=== PATIENT | female | born 1975 | race Caucasian/White ===

== ENCOUNTER 2024-06-09 08:37 | Observation (INO) | payer OTHER, SELFPAY ==
[2024-06-09] VITALS (7 sets, daily range): BP systolic 106–143; BP diastolic 74–101; PULSE 81–104; RESP 13–18; TEMP 35.8–36.7; O2SAT 96–100; BMI 39.0; BMI 38.1
--- NOTE | 2024-06-09 08:49 | RAD_ITS ---
EXAM: XR Chest, 2 Views CLINICAL INDICATION: TECHNIQUE: Frontal and lateral views of the chest. COMPARISON: No relevant prior studies available. FINDINGS: LUNGS AND PLEURAL SPACES: Unremarkable. No consolidation. No pneumothorax. HEART: Unremarkable. No cardiomegaly. MEDIASTINUM: Unremarkable. Normal mediastinal contour. BONES/JOINTS: Unremarkable. No acute fracture. RAD/Chest PA and Lateral IMPRESSION: No acute cardiopulmonary process. Reading Location: [facility]
--- NOTE | 2024-06-09 08:51 | EX.ED.DYSGE1 ---
HPI History of Present Illness Chief Complaint: Hyperglycemia Narrative Narrative: Patient is a 49-year-old female with no known significant past medical history who presented to the emergency department with a chief complaint of concern for elevated blood sugar. Patient states that she does not follow with a doctor on regular basis. Patient states that last Sunday she came down with flulike symptoms and has been not feeling well over the past several days. Patient noted that she felt like her glucose was high on Sunday but not check it. States that she has been not feeling well again today she checked it and noted that her sugar this morning was 280 and was concerned therefore they came here further evaluation management. Patient states that she has an upset stomach this morning but denies vomiting. PFSH PFSH Home Medications ?Medication ?Instructions ?Recorded ?Last Taken ?Type NK 06/09/24 Unknown History Allergy/AdvReac Type Severity Reaction Status Date / Time No Known Allergies Allergy Verified 06/09/24 08:38 Social History Smoking Status: Never smoker ROS ROS ED ROS Narrative Constitutional: Complains of chills denies fevers, headaches, lightness, dizziness Eyes: Denies change in vision double vision blurry vision Cardiovascular: Denies chest pain or palpitations Respiratory: Complains cough but denies sputum production denies shortness of breath Abdomen: Complains of nausea but denies any vomiting or diarrhea abdominal pain : Denies any urinary symptoms Neurological: Denies numbness, weakness, tingling Musculoskeletal: Denies back pain Skin: Denies any rashes or lesions EXAM Physical Exam Narrative Exam Narrative: General: Patient was lying in bed rest comfortably did not appear to be acute distress Head: Atraumatic, normocephalic Eyes: PERRL bilaterally, EOMI bilateral, no conjunctival injection noted Neck: Soft, supple, trach midline Cardiovascular: Regular rate and rhythm no murmurs gallops rubs noted Respiratory: Clear to auscultation bilaterally no rales rhonchi or wheezes noted Abdomen: Soft, nondistended, nontender to palpation Extremities: +5/5 strength noted in the bilateral upper and lower extremities, no pedal edema on exam, radial pulses +2/4 in the bilateral extremities Neurological: Patient following commands knew that she was at [facility] year is 2024 Skin: Warm, dry, intact no rashes or lesions noted Const Vital Signs: 06/09/24 08:39 06/09/24 10:38 06/09/24 12:00 Temperature 96.5 F L Temperature Source Temporal Pulse Rate 104 H 91 84 Respiratory Rate 16 18 17 Blood Pressure 143/101 H 117/80 133/76 H Blood Pressure Mean 115 92 95 Pulse Ox 98 98 Oxygen Delivery Method Room Air Room Air MDM MDM MDM Narrative Medical decision making narrative: Patient is a 49-year-old female who presented to the emergency department with concern for hypoglycemia. Plan of care blood glucose was obtained was noted be 291. On the differential diagnose includes but not limited to hyperglycemia, prediabetic, diabetic, UTI, pneumonia. Once workup is obtained reviewed she will be reevaluated. Patient be given IV fluids, Zofran, Bentyl. Patient CBC reviewed showed no evidence leukocytosis white blood count normal 8.3, hemoglobin was 16.2, platelet count normal at 279. Patient sodium was 130, potassium was noted to be low at 2.2, creatinine was 1.03. Patient glucose noted be 339 anion gap normal at 15. Patient AST and ALT were 22 and 17 respectively. Patient urinalysis reviewed and showed 25 leukocyte esterase negative nitrites 0-5 white blood cells with 3+ bacteria she does not have any urinary symptoms we will send this for culture. Patient's acetone level was negative. Patient chest x-ray reviewed by myself and by radiology showed no acute cardiopulmonary processes. Patient was given 40 mill equivalents of potassium supplementation orally followed by another 30 mill equivalents intravenously will add a another 20 on. Patient's case will be discussed with hospitalist for admission. Discussed case with hospitalist Dr. Gaines who accept patient for admission. Patient and significant other at bedside and agreeable with the plan. All question concerns answered Lab Data Labs: Laboratory Results - last 24 hr 06/09/24 06/09/24 06/09/24 08:45 09:07 09:20 WBC 8.3 RBC 5.24 Hgb 16.2 H Hct 42.8 MCV 81.7 MCH 30.9 MCHC 37.9 H RDW Std Deviation 36.5 RDW Coeff of Heath 12.3 Plt Count 279 MPV 9.8 Immature Gran % (Auto) 0.400 Neut % (Auto) 70.2 H Lymph % (Auto) 24.8 [place] % (Auto) 4.1 Eos % (Auto) 0.1 Baso % (Auto) 0.4 Absolute Neuts (auto) 5.9 Absolute Lymphs (auto) 2.07 Nucleated RBC % 0 Sodium 130 L Potassium 2.2 L* Chloride 96 L Carbon Dioxide 19.0 L Anion Gap 15 BUN 17 Creatinine 1.03 H Estim Creat Clear Calc 67.53 Est GFR (MDRD) Af Amer 73 Est GFR (MDRD) Non-Af 60 BUN/Creatinine Ratio 16.5 Glucose 339 H Calcium 9.6 Magnesium 2.2 Total Bilirubin 1.00 AST 22 ALT 17 Alkaline Phosphatase 109 Total Protein 8.2 Albumin 3.7 Globulin 4.5 H Albumin/Globulin Ratio 0.8 L Lipase 28 L Urine Color Yellow Urine Clarity Clear Urine pH 6.5 Ur Specific [place] 1.010 Urine Protein 30 H Urine Glucose (UA) Normal Urine Ketones 50 H Urine Occult Blood Negative Urine Nitrite Negative Urine Bilirubin Negative Urine Urobilinogen Normal Ur Leukocyte Esterase 25 H Urine RBC 0 SEEN Urine WBC 0-5 SEEN Ur Squamous Epith Cells 0-5 SEEN Ur Transition Epith Cell 0-5 SEEN Urine Bacteria 3+ Hyaline Casts 0-5 SEEN Urine Mucus 0 SEEN Acetone Level NEGATIVE POC Glucose 291 H Radiography Diagnostic Testing: Clinical Impression(s) from Imaging Studies Chest X-Ray 06/09/24 08:49 IMPRESSION: No acute cardiopulmonary process. Reading Location: [facility] Discharge Plan Triage Chief Complaint: Hyperglycemia ED Provider: James Veras Dx/Rx/DC Orders Clinical Impression: Acute hypokalemia, Influenza A Prescriptions: No Action NK Primary Care Provider: Care Physician,No Primary Referrals: NOT,DEFINED [Non-Staff] - Print Language: Malaysian Disposition Disposition: [facility]
[2024-06-09 09:03] LABS: Bedside Glucose 291 mg/dL (74-106)
[2024-06-09] MEDS: Ondansetron 4 MG/2 ML Vial IV (09:13)
[2024-06-09] MEDS: 0.9% Normal Saline (1000mL) 1,000 ML 999 ML IV (09:13)
[2024-06-09] MEDS: Dicyclomine 10 MG Capsule 20 MG PO (09:13)
[2024-06-09 09:32] LABS: Absolute Lymphocyte Count 2.07 X10^3/uL (0.83-4.51); Absolute Neutrophil Count 5.9 X10^3/uL (2.0-7.7); Basophil# 0.03 X10^3/uL; Basophil% 0.4 % (0-1); Eosinophil# 0.01 X10^3/uL; Eosinophils% 0.1 % (0-5); Hematocrit 42.8 % (37-47); Lymphocyte # 2.07 X10^3/ul (0.83-4.51); Lymphocyte % 24.8 % (19-41); Mean Corpuscular Volume 81.7 fL (81-99); Mean Platelet Vol. 9.8 fl (6.2-12.0); Monocyte# 0.34 X10^3/uL; Monocyte% 4.1 % (0-10); NRBC Flagged by Analyzer 0 % (0-5); Neutrophil # 5.85 X10^3/uL (2.7-7.7); Neutrophil % 70.2 % (47-70); POSITIVE COUNT YES; Platelet Count 279 K/mm3 (150-450); RBC Distribution Width CV 12.3 % (11.6-14.6); RBC Distribution Width SD 36.5 fl (35.1-43.9); Red Blood Count 5.24 M/mm3 (4.2-5.4); White Blood Count 8.3 K/mm3 (4.4-11.0)
[2024-06-09 09:33] LABS: Color, Urine Yellow (Yellow); Glucose, Dipstick Normal (Normal); Ketone-Dipstick 50 mg/dl (Negative); Leukocyte Esterase-Dipstick 25 /ul (Negative); Nitrite-Dipstick Negative (Negative); Occult Blood-Urine Negative /ul (Negative); Protein-Dipstick 30 mg/dl (Negative); Urine Bilirubin Dipstick Negative (Negative); Urine Clarity Clear (Clear); Urine Urobilinogen Normal (Normal); Urine pH 6.5 (5.0 - 8.0)
[2024-06-09 09:43] LABS: Bacteria 3+ /hpf (None Seen); Hyaline Cast 0-5 SEEN /lpf (0-5); Mucous, Urine 0 SEEN /hpf (<or=2+); Red Blood Cells-Urine 0 SEEN /hpf (0-5); Squamous Epithelial Cells - UA 0-5 SEEN /hpf (5-10); Transitional Epithelial - Ur 0-5 SEEN /hpf (0-5); White Blood Cells 0-5 SEEN /hpf (0-5)
[2024-06-09 09:51] LABS: ALB/GLOB Ratio 0.8 RATIO (0.9-2.4); AST(SGOT) 22 U/L (15-37); Alanine Aminotransfer ALT/SGPT 17 U/L (13-56); Albumin, Serum 3.7 g/dL (3.2-5.0); Alkaline Phosphatase 109 U/L (45-117); Anion Gap 15 (5-15); BUN 17 mg/dL (7-18); BUN/Creat Ratio 16.5 RATIO (10-20); Calcium,Total 9.6 mg/dL (8.5-10.1); Chloride 96 mmol/L (98-107); Creatinine, Serum 1.03 mg/dL (0.55-1.02); EST Glomerular Filtration Rate 60 mL/min (>60); Est Glom Filt Rate - Afr Amer 73 mL/min (>60); Estimated Creatinine Clearance 67.53 ml/min; Globulin 4.5 g/dL (2.2-4.2); Glucose 339 mg/dL (74-106); Lipase 28 U/L (73-393); Potassium 2.2 mmol/L (3.5-5.1); Protein, Total 8.2 g/dL (6.4-8.2); Sodium Level 130 mmol/L (136-145)
[2024-06-09] MEDS: Potassium Chloride Oral Soln 20 MEQ/15 ML UDC 40 MEQ PO (10:04)
[2024-06-09] MEDS: Potassium Chloride 10mEq/100mL 10 MEQ/100 ML IV.SOLN. 100 MEQ IV BOLUS ×5 (10:06→17:08)
[2024-06-09 10:32] LABS: Hemoglobin 16.2 g/dL (12.0-15.0); Mean Corpuscular Hgb 30.9 pg (27.0-32.0)
[2024-06-09 10:33] LABS: Mean Corp Hgb Conc 37.9 g/dL (32-36)
--- NOTE | 2024-06-09 10:58 | CM.ED ---
Social work Reason for referral: no PCP Referral source: case find This SW identified patient's lack of PCP and need for resources. This SW entered patient's room, introducing self and role at [facility]. Patient accepted SW visit and confirmed not having a PCP. Patient accepted resources of [facility] Provider Directory and Zenia Stark information. Patient denied further needs at this time. Demetra Castañeda, PUBLIC RELATIONS ACCOUNT EXECUTIVE, LABEL OPERATOR
[2024-06-09 11:00] LABS: Magnesium 2.2 mg/dL (1.6-2.6)
--- NOTE | 2024-06-09 14:04 | PCM.HP.STD ---
HPI - General General Date of Admission: 06/09/24 Date of Service: 06/09/24 Chief Complaint: elevated glucose, feeling gen unwell HPI Narrative JANICE MCNEIL, is a 49-year-old female presented [facility] 04/08/2025 with concerns for elevated blood sugar. She does not follow with On regular basis. Last Sunday she came down with flulike symptoms and has not been feeling well. She was not feeling well again today and checked her blood sugar and noted it was 280s and was concerned so she came to the ED for evaluation management. She does have some stomach upset but no vomiting. In the ED [id number] glucose 291, sodium 130 with a potassium of 2.2, bicarb 19, anion gap 15 and creatinine 1.03 with no baseline labs in our system. Patient given a liter of IV fluid with 40 of oral potassium and 50 of IV potassium and hospitalist contacted for admission. Patient evaluated at bedside with family member present reports she has been feeling unwell for about 6 days with the flu, has had some aching and feeling generally unwell with cough and occasionally shortness of breath with the cough. Patient denies any current fevers, denies any abdominal pain, nausea or vomiting or diarrhea but does report she has had very poor p.o. intake during this time. Denies ever being diagnosed with diabetes or other medical problems and denies any known problems her potassium [facility] Home Medications ?Medication ?Instructions ?Recorded ?Last Taken ?Type NK 06/09/24 Unknown History Allergy/AdvReac Type Severity Reaction Status Date / Time No Known Allergies Allergy Verified 06/09/24 08:38 Social History Smoking Status: Never smoker ROS ROS Narrative General: Denies fever/chills HENT: Denies headache EYES: Denies changes in vision Resp: Has had some cough and shortness of breath with the cough Cardiac: Denies chest pain GI: Denies abdominal pain, denies changes in bowel, denies nausea/vomiting, poor p.o. intake : Denies changes in urination Extremity: Denies swelling MSK: Some weakness and generally feeling unwell Neuro: Denies any numbness/tingling Heme: Denies any bleeding or bruising Skin: Denies rashes Psychiatric: No complaints voiced Vital Signs Vital Signs Vital Signs: 06/09/24 08:39 06/09/24 10:38 06/09/24 12:00 Temperature 96.5 F L Temperature Source Temporal Pulse Rate 104 H 91 84 Respiratory Rate 16 18 17 Blood Pressure 143/101 H 117/80 133/76 H Blood Pressure Mean 115 92 95 Pulse Ox 98 98 Oxygen Delivery Method Room Air Room Air Weight Weight: 93.803 kg Body Mass Index (BMI) 39.0 Physical Exam Narrative General: Alert, oriented, no apparent distress HEENT: Atraumatic, normocephalic Eyes: Anicteric, normal conjunctiva, extraocular movements grossly intact Neck: Supple Respiratory: Clear to auscultation bilaterally, normal respiratory effort Cardiovascular: Regular rate and rhythm GI: Soft, nontender, nondistended Extremities: No edema Musculoskeletal: Moving all extremities Neuro: No overt focal neurological deficits Skin: No rashes appreciated Psych: Cooperative Results Lab / Micro Data 06/09/24 09:20 06/09/24 09:20 Labs: Laboratory Results - last 24 hr 06/09/24 08:45: POC Glucose 291 H 06/09/24 09:07: Urine Color Yellow, Urine Clarity Clear, Urine pH 6.5, Ur Specific [place] 1.010, Urine Protein 30 H, Urine Glucose (UA) Normal, Urine Ketones 50 H, Urine Occult Blood Negative, Urine Nitrite Negative, Urine Bilirubin Negative, Urine Urobilinogen Normal, Ur Leukocyte Esterase 25 H, Urine RBC 0 SEEN, Urine WBC 0-5 SEEN, Ur Squamous Epith Cells 0-5 SEEN, Ur Transition Epith Cell 0-5 SEEN, Urine Bacteria 3+, Hyaline Casts 0-5 SEEN, Urine Mucus 0 SEEN 06/09/24 09:20: WBC 8.3, RBC 5.24, Hgb 16.2 H, Hct 42.8, MCV 81.7, MCH 30.9, MCHC 37.9 H, RDW Std Deviation 36.5, RDW Coeff of Heath 12.3, Plt Count 279, MPV 9.8, Immature Gran % (Auto) 0.400, Neut % (Auto) 70.2 H, Lymph % (Auto) 24.8, [place] % (Auto) 4.1, Eos % (Auto) 0.1, Baso % (Auto) 0.4, Absolute Neuts (auto) 5.9, Absolute Lymphs (auto) 2.07, Nucleated RBC % 0, Sodium 130 L, Potassium 2.2 L*, Chloride 96 L, Carbon Dioxide 19.0 L, Anion Gap 15, BUN 17, Creatinine 1.03 H, Estim Creat Clear Calc 67.53, Est GFR (MDRD) Af Amer 73, Est GFR (MDRD) Non-Af 60, BUN/Creatinine Ratio 16.5, Glucose 339 H, Calcium 9.6, Magnesium 2.2, Total Bilirubin 1.00, AST 22, ALT 17, Alkaline Phosphatase 109, Total Protein 8.2, Albumin 3.7, Globulin 4.5 H, Albumin/Globulin Ratio 0.8 L, Lipase 28 L, Acetone Level NEGATIVE Imaging Radiology Impression Chest X-Ray 06/09/24 08:49 IMPRESSION: No acute cardiopulmonary process. Reading Location: [facility] Assessment & Plan Assessment/Plan (1) Acute hypokalemia: PLAN: Plan # Hypokalemia -Potassium 2.2 in the ED with magnesium within normal limits -EKG with a QTc of 42 and 96 bpm, normal sinus rhythm -Patient repleted with 50 of IV potassium and 40 of oral -Trend BMP # Hyperglycemia -Without known diabetes -[id number] was 291 but on BMP was 339 -Check A1c -Sliding scale insulin # Concern for dehydration -Patient with elevated hemoglobin, creatinine of 1.03 and electrolyte abnormalities, given this in addition to her flulike symptoms concerned that there is a component of dehydration -IV fluids -Supportive care # Flulike symptoms -Patient endorses 6 days of the flu, supportive care -Will add droplet precautions #DVT ppx: Lovenox subcu Maura Gaines MD Charges/Coding Visit Charges Inpatient E&M: 64077 Init Hosp L2
[2024-06-09] MEDS: 0.9% Normal Saline (1000mL) 1,000 ML 50 ML IV (16:06)
[2024-06-09] MEDS: Insulin Lispro 100 UNIT/ML INSULN.PEN SC ×2 (17:27→21:49)
[2024-06-09 17:34] LABS: Bedside Glucose 270 mg/dL (74-106)
[2024-06-09 18:25] LABS: Anion Gap 9 (5-15); BUN 14 mg/dL (7-18); BUN/Creat Ratio 17.1 RATIO (10-20); Calcium,Total 8.6 mg/dL (8.5-10.1); Chloride 105 mmol/L (98-107); Creatinine, Serum 0.82 mg/dL (0.55-1.02); EST Glomerular Filtration Rate 78 mL/min (>60); Est Glom Filt Rate - Afr Amer 95 mL/min (>60); Estimated Creatinine Clearance 83.65 ml/min; Glucose 248 mg/dL (74-106); Potassium 3.1 mmol/L (3.5-5.1); Sodium Level 136 mmol/L (136-145)
[2024-06-09] MEDS: Potassium Chloride Oral Tablet 20 MEQ 60 MEQ PO (21:49)
[2024-06-09 22:14] LABS: Bedside Glucose 254 mg/dL (74-106)
[2024-06-09 22:30] LABS: Anion Gap 7 (5-15); BUN 14 mg/dL (7-18); BUN/Creat Ratio 15.2 RATIO (10-20); Calcium,Total 8.5 mg/dL (8.5-10.1); Chloride 104 mmol/L (98-107); Creatinine, Serum 0.92 mg/dL (0.55-1.02); EST Glomerular Filtration Rate 68 mL/min (>60); Est Glom Filt Rate - Afr Amer 82 mL/min (>60); Estimated Creatinine Clearance 74.55 ml/min; Glucose 245 mg/dL (74-106); Potassium 3.2 mmol/L (3.5-5.1); Sodium Level 135 mmol/L (136-145)
[2024-06-10 03:42] VITALS: BP 134/70; PULSE 79; RESP 16; TEMP 36.6; O2SAT 95
[2024-06-10] MEDS: Insulin Lispro 100 UNIT/ML INSULN.PEN SC ×2 (06:24→12:02)
[2024-06-10 06:48] LABS: Bedside Glucose 190 mg/dL (74-106)
[2024-06-10 07:19] LABS: Absolute Lymphocyte Count 2.28 X10^3/uL (0.83-4.51); Absolute Neutrophil Count 3.5 X10^3/uL (2.0-7.7); Basophil# 0.02 X10^3/uL; Basophil% 0.3 % (0-1); Eosinophil# 0.05 X10^3/uL; Eosinophils% 0.8 % (0-5); Hematocrit 38.8 % (37-47); Hemoglobin 13.8 g/dL (12.0-15.0); Lymphocyte # 2.28 X10^3/ul (0.83-4.51); Lymphocyte % 37.1 % (19-41); Mean Corp Hgb Conc 35.6 g/dL (32-36); Mean Corpuscular Hgb 30.1 pg (27.0-32.0); Mean Corpuscular Volume 84.5 fL (81-99); Mean Platelet Vol. 9.7 fl (6.2-12.0); Monocyte# 0.32 X10^3/uL; Monocyte% 5.2 % (0-10); NRBC Flagged by Analyzer 0 % (0-5); Neutrophil # 3.45 X10^3/uL (2.7-7.7); Neutrophil % 56.3 % (47-70); Platelet Count 249 K/mm3 (150-450); RBC Distribution Width CV 12.7 % (11.6-14.6); RBC Distribution Width SD 38.6 fl (35.1-43.9); Red Blood Count 4.59 M/mm3 (4.2-5.4); White Blood Count 6.1 K/mm3 (4.4-11.0)
--- NOTE | 2024-06-10 07:44 | PN.HOSP_ITS ---
Reason for Visit Reason for Visit: Diagnoses Hypokalemia (06/09/24) Objective Data Objective Data Vital Signs: Vital Signs Temp Pulse Resp BP Pulse Ox O2 Del Method 97.9 F 79 16 134/70 H 95 Room Air 06/10/24 03:42 06/10/24 03:42 06/10/24 03:42 06/10/24 03:42 06/10/24 03:42 06/10/24 03:42 Oxygen Delivery Method Room Air Weight: 201 lb 11.567 oz Body Mass Index (BMI) 38.1 Intake & Output: Intake and Output for Last 24 Hours 06/08/24 06/09/24 06/10/24 23:59 23:59 23:59 Intake Total 1495.00 / 1495.00 Balance 1495.00 / 1495.00 Lab / Micro Data 06/10/24 06:39 06/09/24 22:09 Labs: Laboratory Results - last 24 hr 06/09/24 08:45: POC Glucose 291 H 06/09/24 09:07: Urine Color Yellow, Urine Clarity Clear, Urine pH 6.5, Ur Specific [place] 1.010, Urine Protein 30 H, Urine Glucose (UA) Normal, Urine Ketones 50 H, Urine Occult Blood Negative, Urine Nitrite Negative, Urine Bilirubin Negative, Urine Urobilinogen Normal, Ur Leukocyte Esterase 25 H, Urine RBC 0 SEEN, Urine WBC 0-5 SEEN, Ur Squamous Epith Cells 0-5 SEEN, Ur Transition Epith Cell 0-5 SEEN, Urine Bacteria 3+, Hyaline Casts 0-5 SEEN, Urine Mucus 0 SEEN 06/09/24 09:20: WBC 8.3, RBC 5.24, Hgb 16.2 H, Hct 42.8, MCV 81.7, MCH 30.9, M CHC 37.9 H, RDW Std Deviation 36.5, RDW Coeff of Heath 12.3, Plt Count 279, MPV 9.8, Immature Gran % (Auto) 0.400, Neut % (Auto) 70.2 H, Lymph % (Auto) 24.8, [place] % (Auto) 4.1, Eos % (Auto) 0.1, Baso % (Auto) 0.4, Absolute Neuts (auto) 5.9, Absolute Lymphs (auto) 2.07, Nucleated RBC % 0, Sodium 130 L, Potassium 2.2 L*, Chloride 96 L, Carbon Dioxide 19.0 L, Anion Gap 15, BUN 17, Creatinine 1.03 H, Estim Creat Clear Calc 67.53, Est GFR (MDRD) Af Amer 73, Est GFR (MDRD) Non-Af 60, BUN/Creatinine Ratio 16.5, Glucose 339 H, Calcium 9.6, Magnesium 2.2, Total Bilirubin 1.00, AST 22, ALT 17, Alkaline Phosphatase 109, Total Protein 8.2, Albumin 3.7, Globulin 4.5 H, A lbumin/Globulin Ratio 0.8 L, Lipase 28 L, Acetone Level NEGATIVE 06/09/24 17:06: POC Glucose 270 H 06/09/24 17:43: Sodium 136, Potassium 3.1 L, Chloride 105, Carbon Dioxide 22.0, Anion Gap 9, BUN 14, Creatinine 0.82, Estim Creat Clear Calc 83.65, Est GFR (MDRD) Af Amer 95, Est GFR (MDRD) Non-Af 78, BUN/Creatinine Ratio 17.1, Glucose 248 H, Calcium 8.6 06/09/24 21:47: POC Glucose 254 H 06/09/24 22:09: Sodium 135 L, Potassium 3.2 L, Chloride 104, Carbon Dioxide 24.0, Anion Gap 7, BUN 14, Creatinine 0.92, Estim Creat Clear Calc 74.55, Est GFR (MDRD) Af Amer 82, Est GFR (MDRD) Non-Af 68, BUN/Creatinine Ratio 15.2, G lucose 245 H, Calcium 8.5 06/10/24 06:22: POC Glucose 190 H 06/10/24 06:39: WBC 6.1, RBC 4.59, Hgb 13.8, Hct 38.8, MCV 84.5, MCH 30.1, MCHC 35.6 D, RDW Std Deviation 38.6, RDW Coeff of Heath 12.7, Plt Count 249, MPV 9.7, Immature Gran % (Auto) 0.300, Neut % (Auto) 56.3, Lymph % (Auto) 37.1, [place] % (Auto) 5.2, Eos % (Auto) 0.8, Baso % (Auto) 0.3, Absolute Neuts (auto) 3.5, Absolute Lymphs (auto) 2.28, Nucleated RBC % 0 Radiography Diagnostic Testing: Radiology Impression Chest X-Ray 06/09/24 08:49 IMPRESSION: No acute cardiopulmonary process. Reading Location: [facility] Assessment & Plan Assessment/Plan (1) Acute hypokalemia: PLAN: Plan 49-year-old female was admitted with high blood sugar at home. Patient does not have a PCP to follow-up with # Hypokalemia -Potassium 2.2 in the ED with magnesium within normal limits -EKG with a QTc of 42 and 96 bpm, normal sinus rhythm -Patient repleted with 50 of IV potassium and 40 of oral -Trend BMP # Hyperglycemia -Without known diabetes -[id number] was 291 but on BMP was 339 -Check A1c -Sliding scale insulin # Concern for dehydration -Patient with elevated hemoglobin, creatinine of 1.03 and electrolyte abnormalities, given this in addition to her flulike symptoms concerned that there is a component of dehydration -IV fluids -Supportive care # Flulike symptoms -Patient endorses 6 days of the flu, supportive care -Will add droplet precautions #DVT ppx: Lovenox subcu
[2024-06-10 08:26] LABS: Anion Gap 7 (5-15); BUN 11 mg/dL (7-18); BUN/Creat Ratio 16.6 RATIO (10-20); Calcium,Total 8.5 mg/dL (8.5-10.1); Chloride 109 mmol/L (98-107); Creatinine, Serum 0.66 mg/dL (0.55-1.02); EST Glomerular Filtration Rate 100 mL/min (>60); Est Glom Filt Rate - Afr Amer 121 mL/min (>60); Estimated Creatinine Clearance 103.92 ml/min; Glucose 176 mg/dL (74-106); Potassium 3.1 mmol/L (3.5-5.1); Sodium Level 138 mmol/L (136-145); Thyroid Stim Hormone (TSH) 0.737 uIU/mL (0.358-3.740)
[2024-06-10 09:40] VITALS: BP 119/69; PULSE 94; RESP 18; TEMP 36.6; O2SAT 98
--- NOTE | 2024-06-10 09:40 | DCINST_ITS ---
Discharge Instructions Diet Discharge Diet: Low fat / Low cholesterol, 1800 Calorie Control Diet and 2000 mg Sodium Diet DC O2, CPAP, BIPAP needs Home O2 Discharge instructions: No Dressing / Incision Discharge Activity: Return to Normal Activity Weight Bearing Status: Weight bearing as tolerated Dressing / Incision Call your doctor if you observe: Fever of 101 or Higher, Coldness, Increased Pain, Numbness or Tingling, Change in Color, Inability to urinate, Inability to have a bowel movement, Shortness of breath, Dizziness, Fainting spells, Swelling in the ankles, Chest pain, Prolonged hiccupping, Increased palpitations (irregular heartbeat) and Calf discomfort Follow Up Care When: IN 2 WEEKS Test Results: Test results from this visit will be discussed in further detail at your follow- up appointment, if applicable. Discharge Plan Admission Admit Date/Time: 06/09/24 14:04 Attending Provider: Attila Matute Primary Care Provider: Care Physician,No Primary Consulting Providers: Maura Gaines Discharge Orders/Prescriptions Prescriptions: New potassium chloride 20 mEq Tablet,Er Particles/Crystals 40 meq PO BIDCM 3 Days Qty: 12 0RF glipizide 5 mg tablet 5 mg PO BID 30 Days Qty: 60 2RF Rx Instructions: Hold if glucose less than 130 mg/dl metformin 500 mg tablet 500 mg PO BID 30 Days Qty: 60 1RF Rx Instructions: Start from 06/12/2024 Referrals / Follow Up: Care Physician,No Primary [Primary Care Provider] - NOT,DEFINED [Non-Staff] - Disposition Disposition (needs filled in before D/C Order can be placed): Home, Self Care
[2024-06-10 09:43] LABS: Hemoglobin A1c 7.6 % (3.8-5.6)
[2024-06-10 09:53] VITALS: RESP 18
[2024-06-10] MEDS: Potassium Chloride Oral Tablet 20 MEQ 40 MEQ PO (10:22)
--- NOTE | 2024-06-10 12:00 | DS.PCM_ITS ---
Providers Date of Admission: 06/09/24 Date of Discharge: 06/10/24 Primary Care Physician: No Primary Care Phys Reason For Visit: HYPOKALEMIA Diagnosis Discharge Diagnosis (1) Acute hypokalemia: Status: Acute Code(s): E87.6 - Hypokalemia Plan 49-year-old female was admitted with high blood sugar at home. Patient does not have a PCP to follow-up with # Hypokalemia -Potassium 2.2 in the ED with magnesium within normal limits -EKG with a QTc of 482 and 96 bpm, normal sinus rhythm -Potassium was replaced. Prescription for potassium given. Serum magnesium normal. # new onset diabetes mellitus: Patient knew that she has hyperglycemia for the last 4 to 5 years but really she was avoiding it. Most likely type 2 diabetes mellitus. She does not have primary care. Advised to establish with. A1c 7.6%. Glucose is controlled, 176 in BMP. Prescription given for metformin and glipizide. Advised [place] 3 times daily AC metformin. # Acute dehydration: Hydration was completed. -Patient with elevated hemoglobin, creatinine of 1.03 and electrolyte abnormalities, given this in addition to her flulike symptoms concerned that there is a component of dehydration -IV fluids -Supportive care # Flulike symptoms -Patient endorses 6 days of the flu, supportive care. She is recovering. Advised to maintain droplet precautions for 2 more days #DVT ppx: Lovenox subcu Discharge medication reconciliation done. Discharge follow-up instructions completed. Discharge process discussed with the patient and all questions were answered to patient's satisfaction. Follow with PCP in 1 to 2 weeks Total time spent, exact 35 minutes on discharge meds reconciliation, examination, coordination of care with nurses and ancillary staff, review of imaging and blood test and discussion with the patient on follow-up instructions. Medications at Discharge Home Medications glipizide 5 mg tablet 5 mg PO BID 1 month #60 tabs 06/10/24 metformin 500 mg tablet 500 mg PO BID 1 month #60 tabs 06/10/24 potassium chloride 20 mEq tablet,extended release(part/cryst) 40 meq (2 x 20 mEq) PO BIDCM 3 days #12 tabs 06/10/24 Physical Exam Narrative Seen and examined. Patient has mild cough from flu about 6 days to 1 week ago. She is recovering well. No fever. Glucoses controlled. Physical exam General: Alert, Oriented x3, Cooperative HEENT: Atraumatic, PERRLA, EOMI, Normocephalic Oral: Oral mucosa moist. No Gingival or Mucosal Lesions/ Ulcerations Neck: Supple, No JVD, Negative Carotid Bruits Chest wall/Lungs: Air entry diminished in bilateral lung bases. No crepitation/rhonchi Cardiovascular: Regular rate, Regular Rhythm, Normal S1, Normal S2, No M/G/R Abdomen: Bowel Sounds Present, Soft, Non Tender, Non-Distended : No dysuria. No renal angle tenderness. No suprapubic tenderness. Extremities: No edema, Capillary Refill Less than 3 Seconds Skin: No rashes, No breakdown Musculoskeletal: No Tenderness to Palpation of Joints or Extremities Neurological: Cranial nerves II-XII grossly intact, DTR 2+/4. No acute focal neurological deficit. Psych/Mental Status: Normal Affect, Appropriate. Weight / BMI Weight Weight: 201 lb 11.567 oz Body Mass Index (BMI) 38.1 ABG / Lab / Microbiology Data 06/10/24 06:39 06/10/24 06:39 Laboratory: Laboratory Results - last 24 hr 06/09/24 17:06: POC Glucose 270 H 06/09/24 17:43: Sodium 136, Potassium 3.1 L, Chloride 105, Carbon Dioxide 22.0, Anion Gap 9, BUN 14, Creatinine 0.82, Estim Creat Clear Calc 83.65, Est GFR (MDRD) Af Amer 95, Est GFR (MDRD) Non-Af 78, BUN/Creatinine Ratio 17.1, Glucose 248 H, Calcium 8.6 06/09/24 21:47: POC Glucose 254 H 06/09/24 22:09: Sodium 135 L, Potassium 3.2 L, Chloride 104, Carbon Dioxide 24.0, Anion Gap 7, BUN 14, Creatinine 0.92, Estim Creat Clear Calc 74.55, Est GFR (MDRD) Af Amer 82, Est GFR (MDRD) Non-Af 68, BUN/Creatinine Ratio 15.2, G lucose 245 H, Calcium 8.5 06/10/24 06:22: POC Glucose 190 H 06/10/24 06:39: WBC 6.1, RBC 4.59, Hgb 13.8, Hct 38.8, MCV 84.5, MCH 30.1, MCHC 35.6 D, RDW Std Deviation 38.6, RDW Coeff of Heath 12.7, Plt Count 249, MPV 9.7, Immature Gran % (Auto) 0.300, Neut % (Auto) 56.3, Lymph % (Auto) 37.1, [place] % (Auto) 5.2, Eos % (Auto) 0.8, Baso % (Auto) 0.3, Absolute Neuts (auto) 3.5, Absolute Lymphs (auto) 2.28, Nucleated RBC % 0, Sodium 138, Potassium 3.1 L, C hloride 109 H, Carbon Dioxide 22.0, Anion Gap 7, BUN 11, Creatinine 0.66, Estim Creat Clear Calc 103.92, Est GFR (MDRD) Af Amer 121, Est GFR (MDRD) Non-Af 100, BUN/Creatinine Ratio 16.6, Glucose 176 H, Hemoglobin A1c 7.6 H, Calcium 8.5, TSH 0.737 Microbiology: Microbiology 06/09/24 10:20 Urine, Random Urine Culture - Preliminary Mixed Gram Positive Organisms D/C Instructions Discharge Diet: Low fat / Low cholesterol, 1800 Calorie Control Diet and 2000 mg Sodium Diet Weight Bearing Status: Weight bearing as tolerated Call your doctor if you observe: Fever of 101 or Higher, Coldness, Increased Pain, Numbness or Tingling, Change in Color, Inability to urinate, Inability to have a bowel movement, Shortness of breath, Dizziness, Fainting spells, Swelling in the ankles, Chest pain, Prolonged hiccupping, Increased palpitations (irregular heartbeat) and Calf discomfort DC O2, CPAP, BIPAP Needs Home O2 Discharge instructions: No When: IN 2 WEEKS Meaningful Use Info Meaningful Use Meaningful Use Diagnoses (Choose all that apply): None applicable Ischemic Stroke Statin Dosing Therapy Reference: STATIN DOSE THERAPY REFERENCE: * Patients > 75 years receive moderate or high dose statin therapy. * Patients 75 years or YOUNGER should receive HIGH intensity statin dose unless contraindicated. You will be required to document reason for non-treatment if statin daily dose does not meet guidelines. HIGH DOSE STATIN THERAPY DAILY Atorvastatin > than or = to 40 mg Rosuvastatin > than or = to 20 mg Amlodipine + Atorvastatin > than or = to 2.5/40 mg Ezetimibe + Simvastatin 10/80 mg Simvastatin 80mg Discharge Plan Admission Admit Date/Time: 06/09/24 14:04 Attending Provider: Attila Matute Primary Care Provider: Care Physician,No Primary Consulting Providers: Maura Gaines Discharge Orders/Prescriptions Prescriptions: New potassium chloride 20 mEq Tablet,Er Particles/Crystals 40 meq PO BIDCM 3 Days Qty: 12 0RF glipizide 5 mg tablet 5 mg PO BID 30 Days Qty: 60 2RF Rx Instructions: Hold if glucose less than 130 mg/dl metformin 500 mg tablet 500 mg PO BID 30 Days Qty: 60 1RF Rx Instructions: Start from 06/12/2024 Referrals / Follow Up: Care Physician,No Primary [Primary Care Provider] - NOT,DEFINED [Non-Staff] - Disposition Disposition (needs filled in before D/C Order can be placed): Home, Self Care Charges/Coding Visit Charges Inpatient E&M: 66937 Disch Hosp >30min
[2024-06-10 12:25] LABS: Bedside Glucose 271 mg/dL (74-106)
--- NOTE | 2024-06-10 12:53 | CASEMGMT ---
Patient has order for discharge. Patient will need glucometer at discharge, script received. RN CM in to discuss needs at discharge. RN CM provided patient with script for glucometer and also updated regarding OTC glucometer at [facility]. Pateint provided with PCP list and [employer] [employer] informations. Patient denies needs or help at discharge. Patient had no further questions or concerns.
[2024-06-10 13:37] VITALS: BP 110/70; PULSE 87; RESP 18; TEMP 36.4; O2SAT 94
--- NOTE | 2024-06-10 14:34 | CHAPLAIN ---
Type of Pastoral Visit _x__ Initial Visit ___ Follow-up Visit ___ On-call Visit ___ General Patient Visit ___ Spiritual Assessment ___ Family Conference ___ Bereavement ___ Rapid Response ___ Code Blue ___ Other (describe below) Pastoral Care Referral From _x__ Patient ___ Family ___ Nurse ___ Physician ___ Employment Program Representative ___ Wharf Tender ___ Other (describe below) Sacrament/Intervention _x__ Active listening ___ Anointing ___ Roman Catholic ___ Bereavement ___ Communion ___ Cesilia exploration ___ ___ Life review ___ Prayer ___ Reconciliation ___ Sacrament of Sick ___ Supportive presence ___ Wedding ___ Other (describe below) Pastoral Comments patient says that she is feeling fine and is waiting for a ride to go home; spouse is in the room and reports that they are fine and have no new needs;goal is to have patient have better health all the time
== END 2024-06-10 09:40 | disposition home or self-care (01) ==
LOC: ED 09:04 → PCU 13:59
PROVIDERS: Admitting Provider Internal Medicine; Emergency Provider Emergency Medicine; Visit Provider Internal Medicine
DX: J10.1 Influenza due to other identified influenza virus with other respiratory manifestations (principal); E87.6 Hypokalemia; R73.9 Hyperglycemia, unspecified; E86.0 Dehydration
CPT/HCPCS: 36415; 71046; 80048; 80053; 81001; 82009; 82962; 83036; 83690; 83735; 84443; 85025; 87086; 87088; 93005; 94668; 96365; 96366; 96375; 99221; 99283; A4216; G0378; J2405

== ENCOUNTER 2024-07-11 16:25 | Emergency (ER) | payer OTHER, SELFPAY ==
[2024-07-11 16:25] VITALS: BP 119/83; PULSE 98; RESP 14; TEMP 35.6; O2SAT 98; BMI 36.6
[2024-07-11 17:13] VITALS: BP 103/82; BP 113/74; BP 113/86; PULSE 101; PULSE 91; PULSE 92
[2024-07-11 17:16] LABS: White Blood Cells 0 SEEN /hpf (0-5)
[2024-07-11 17:27] LABS: Absolute Lymphocyte Count 3.08 X10^3/uL (0.83-4.51); Absolute Neutrophil Count 8.9 X10^3/uL (2.0-7.7); Basophil# 0.03 X10^3/uL; Basophil% 0.2 % (0-1); Eosinophil# 0.08 X10^3/uL; Eosinophils% 0.6 % (0-5); Hematocrit 45.3 % (37-47); Hemoglobin 16.8 g/dL (12.0-15.0); Lymphocyte # 3.08 X10^3/ul (0.83-4.51); Lymphocyte % 23.5 % (19-41); Mean Corp Hgb Conc 37.1 g/dL (32-36); Mean Corpuscular Hgb 30.7 pg (27.0-32.0); Mean Corpuscular Volume 82.8 fL (81-99); Mean Platelet Vol. 9.7 fl (6.2-12.0); Monocyte# 0.99 X10^3/uL; Monocyte% 7.5 % (0-10); NRBC Flagged by Analyzer 0 % (0-5); Neutrophil # 8.91 X10^3/uL (2.7-7.7); Neutrophil % 67.9 % (47-70); Platelet Count 366 K/mm3 (150-450); RBC Distribution Width CV 12.6 % (11.6-14.6); Red Blood Count 5.47 M/mm3 (4.2-5.4); White Blood Count 13.1 K/mm3 (4.4-11.0)
[2024-07-11 17:31] LABS: Color, Urine Yellow (Yellow); Glucose, Dipstick Normal (Normal); Ketone-Dipstick 5 mg/dl (Negative); Leukocyte Esterase-Dipstick Negative /ul (Negative); Nitrite-Dipstick Negative (Negative); Occult Blood-Urine Negative /ul (Negative); Protein-Dipstick 30 mg/dl (Negative); Specific Gravity, Urine 1.015 (1.002-1.030); Urine Bilirubin Dipstick Negative (Negative); Urine Clarity Clear (Clear); Urine Urobilinogen Normal (Normal)
[2024-07-11 17:39] LABS: Bedside Glucose 162 mg/dL (74-106)
[2024-07-11 17:56] LABS: Bacteria 1+ /hpf (None Seen); Mucous, Urine 1+ /hpf (<or=2+); Red Blood Cells-Urine 0 SEEN /hpf (0-5); Squamous Epithelial Cells - UA 0-5 SEEN /hpf (5-10)
[2024-07-11 17:56] LABS: ALB/GLOB Ratio 1.4 RATIO (0.9-2.4); AST(SGOT) 20 U/L (<=31); Alanine Aminotransfer ALT/SGPT 11 U/L (<=34); Albumin, Serum 4.8 g/dL (3.5-5.0); Alkaline Phosphatase 85 U/L (35-104); Anion Gap 18 (5-15); BUN 21 mg/dL (4-19); BUN/Creat Ratio 20.7 RATIO (10-20); Carbon Dioxide 20.7 mmol/L (21.0-32.0); Chloride 91 mmol/L (98-108); EST Glomerular Filtration Rate 68 (>60); Estimated Creatinine Clearance 67.08 ml/min (50-250); Globulin 3.4 g/dL (2.2-4.2); Glucose 140 mg/dL (70-99); Potassium 2.8 mmol/L (3.3-5.1); Protein, Total 8.1 g/dL (5.9-8.4); Sodium Level 130 mmol/L (133-145); Total Bilirubin 0.51 mg/dL (0.00-1.30)
[2024-07-11 18:25] VITALS: BP 111/74; PULSE 89; RESP 16; O2SAT 99
[2024-07-11] MEDS: Potassium Chloride Oral Soln 20 MEQ/15 ML UDC 40 MEQ PO ×2 (19:19→20:03)
--- NOTE | 2024-07-11 19:54 | EDS_ITS ---
HPI History of Present Illness Chief Complaint: Weakness Detail of Chief Complaint: I do not feel right since Sunday Informant: patient and spouse/S.O. Onset/Context/Timing Onset: Days Context: Sudden Onset Timing: Continuous Quality: Feels different, does not feel right Location: No specific location, generalized Current Severity: Unable to quantitate Maximum Severity: Unable to quantitate Worsened by: Nothing Relieved by: Nothing Associated Symptoms Associated Symptoms: Legs are wobbly when she walks Narrative Narrative: Patient is a 49-year-old woman. She has history of type 2 diabetes. She was prescribed potassium in the past for hypokalemia. She denies fever, chills night sweats. Denies headache, visual, ocular auditory symptoms. She denies problems with speech or swallowing. She denies rhinorrhea, congestion, postnasal drainage sore throat. She denies chest pain. Denies cough or shortness of breath. She denies difficulty breathing. She denies abdominal pain, nausea, vomiting has chronic diarrhea. Patient denies dysuria, frequency, urgency or hematuria. Patient denies skin lesions. Patient denies paresthesia, anesthesia or motor weakness. Patient denies orthostatic symptoms. Patient denies vertiginous symptoms. Patient's sugars have been running between 1 20-1 50 which is about her baseline. I was walking out the room informing that last time she felt this way her potassium was low. Prior similar symptoms: Yes Recent Illness/Hospitalization: No [facility] Medical History Diabetes Home Medications ?Medication ?Instructions ?Recorded ?Last Taken ?Type glipizide 5 mg tablet 5 mg PO BID 1 month #60 tabs 06/10/24 Unknown Rx metformin 500 mg tablet 500 mg PO BID 1 month #60 ta bs 06/10/24 Unknown Rx potassium chloride 20 mEq 40 meq (2 x 20 mEq) PO BIDCM 3 06/10/24 Unknown Rx tablet,extended release(part/cryst) days #12 tabs potassium chloride 20 mEq oral 20 meq PO BID #50 ea Unknown Rx packet Allergy/AdvReac Type Severity Reaction Status Date / Time No Known Allergies Allergy Verified 07/11/24 16:26 Social History (Updated 07/11/24 @ 19:[address] Tony Patel MD) household members: spouse Smoking Status: Never smoker ROS ROS ED Constitutional Constitutional ED: Denies chills, fever(s), subjective, sweats or weight loss Eyes Eyes: Denies blurry vision or change in vision ENT ENT ED: Denies ear pain, rhinorrhea or sore throat Cardiovascular Cardiovascular: Denies chest pain, orthopnea, palpitations, paroxysmal nocturnal dyspnea or racing heartbeat Respiratory/Chest Respiratory/Chest: Denies cough, dyspnea on exertion, orthopnea or paroxysmal nocturnal dyspnea Gastrointestinal Gastrointestinal: Reports diarrhea and other Details: Diarrhea is chronic. She has never had a colonoscopy. She did have stool tests. She does not know the results. ; Denies abdominal pain, constipation, melena, nausea or vomiting Genitourinary Genitourinary ED: Denies dysuria, hematuria or urinary frequency Musculoskeletal Musculoskeletal: Denies arthralgias, back pain or myalgias Integumentary Denies abscess, Abrasions or rash Neurologic Neurologic: Reports weakness; Denies headache(s) or paresthesias Psychiatric Psychiatric: Denies anxiety or depression Hematologic/Lymphatic Hematologic/Lymphatic: Reports systems reviewed and no addt'l complaints, except as documented EXAM Physical Exam Const Vital Signs: 07/11/24 16:25 07/11/24 16:46 07/11/24 17:13 Temperature 96.1 F L Temperature Source Temporal Pulse Rate 98 Pulse Rate [Lying] 91 Pulse Rate [Sitting (for 1 minute prior to obtaining)] 92 Pulse Rate [Standing (for 1 minute prior to obtaining)] 101 H Respiratory Rate 14 Respiratory Effort Normal Respiratory Pattern Normal Blood Pressure 119/83 H Blood Pressure [Lying] 113/74 Blood Pressure [Sitting (for 1 minute prior to obtaining)] 113/86 H Blood Pressure [Standing (for 1 minute prior to obtaining)] 103/82 H Blood Pressure Mean 95 Blood Pressure Mean [Lying] 87 Blood Pressure Mean [Sitting (for 1 minute prior to obtaining)] 95 Blood Pressure Mean [Standing (for 1 minute prior to obtaining)] 89 Pulse Ox 98 Oxygen Delivery Method Room Air 07/11/24 18:25 07/11/24 20:00 Temperature Temperature Source Pulse Rate 89 89 Pulse Rate [Lying] Pulse Rate [Sitting (for 1 minute prior to obtaining)] Pulse Rate [Standing (for 1 minute prior to obtaining)] Respiratory Rate 16 16 Respiratory Effort Respiratory Pattern Blood Pressure 111/74 112/82 H Blood Pressure [Lying] Blood Pressure [Sitting (for 1 minute prior to obtaining)] Blood Pressure [Standing (for 1 minute prior to obtaining)] Blood Pressure Mean 86 92 Blood Pressure Mean [Lying] Blood Pressure Mean [Sitting (for 1 minute prior to obtaining)] Blood Pressure Mean [Standing (for 1 minute prior to obtaining)] Pulse Ox 99 97 Oxygen Delivery Method Room Air Room Air Vital signs noted. Orthostatic vital signs negative. Positive well nourished and well developed Constitutional Narrative: BMI is 36.6. General Appearance ED: well developed and NAD; Negative for pallor HEENT Reports moist mucous membranes HEENT Narrative: Head is atraumatic normocephalic. Ears are normal. Nares are patent. Posterior pharynx is normal. Uvula is midline. No deviation tongue protrusion. Eyes PERRL and EOMs intact bilaterally General Eye ED: Negative for pale conjunctiva or scleral icterus Neck no lymphadenopathy, supple and no JVD Chest Wall inspection of chest normal and palpation of chest normal Resp normal respiratory effort and clear to auscultation bilaterally Cardio regular rate, regular rhythm, S1 normal heart sound, S2 normal heart sound and no murmurs GI normal to inspection, nondistended, normoactive bowel sounds, non-tender, non- distended and no masses; Negative for hepatosplenomegaly Back/Spine no CVA tenderness Extremity normal to inspection General Extremety ED: Negative for edema or tenderness General Extremity: Negative for edema Neuro oriented x3, CN's II-XII intact bilaterally and no sensory deficits noted Sensorium / Orientation: alert Motor Exam: strength 5/5 throughout Psych mental status grossly normal Skin no rashes or lesions noted, no wounds and skin turgor normal General Skin Exam: elasticity normal; Negative for jaundice or pallor MDM MDM MDM Narrative Medical decision making narrative: The patient complained of wobbly legs orthostatics were performed and normal. CBC to assess H&H since she appears pale but her conjunctive is pink. UA to assess specific gravity and evidence of infection. Since he is diabetic Roc panel was obtained assess glucose CO2 anion gap. With her having chronic diarrhea also to assess for hypokalemia and in light of the fact that she has had hypokalemia in the past. Lab Data Attestation: I reviewed the patient's lab results. Lab results narrative: White count is slightly elevated with normal basic metabolic panel is remarkable for a sodium of 130, potassium of 2.8 and chloride of 91. CO2 is slightly decreased at 20.7 with an anion gap of 18. As needed GFR is 68. Urinalysis reveals bacteria without pyuria. Labs: Laboratory Results - last 24 hr 07/11/24 07/11/24 07/11/24 16:54 17:05 17:20 WBC 13.1 H RBC 5.47 H Hgb 16.8 H Hct 45.3 MCV 82.8 MCH 30.7 MCHC 37.1 H RDW Std Deviation 38.0 RDW Coeff of Heath 12.6 Plt Count 366 MPV 9.7 Immature Gran % (Auto) 0.300 Neut % (Auto) 67.9 Lymph % (Auto) 23.5 [place] % (Auto) 7.5 Eos % (Auto) 0.6 Baso % (Auto) 0.2 Absolute Neuts (auto) 8.9 H Absolute Lymphs (auto) 3.08 Nucleated RBC % 0 Sodium 130 L Potassium 2.8 L Chloride 91 L Carbon Dioxide 20.7 L Anion Gap 18 H BUN 21 H Creatinine 1.00 Estim Creat Clear Calc 67.08 Est GFR (MDRD) Non-Af 68 BUN/Creatinine Ratio 20.7 H Glucose 140 H Calcium 10.0 Total Bilirubin 0.51 AST 20 ALT 11 Alkaline Phosphatase 85 Total Protein 8.1 Albumin 4.8 Globulin 3.4 Albumin/Globulin Ratio 1.4 Urine Color Yellow Urine Clarity Clear Urine pH 6.0 Ur Specific [place] 1.015 Urine Protein 30 H Urine Glucose (UA) Normal Urine Ketones 5 H Urine Occult Blood Negative Urine Nitrite Negative Urine Bilirubin Negative Urine Urobilinogen Normal Ur Leukocyte Esterase Negative Urine RBC 0 SEEN Urine WBC 0 SEEN Ur Squamous Epith Cells 0-5 SEEN Urine Bacteria 1+ Urine Mucus 1+ POC Glucose 162 H Treatment and Re-Evaluation :: Since patient is hypokalemic 40 mEq of potassium was ordered and repeat dose in 1 hour. Suspect this is due to her chronic diarrhea. Will suggest to follow-up with Dr. Delaney for outpatient workup of her diarrhea. Comments:: Patient was informed she needs follow-up with chair lift operator for colonoscopy or sigmoidoscopy. She states she is having this worked up. She was offered an acute appointment with Dr. Delaney. She declined. She states she would talk to her doctor to determine what best. Patient understands that her low potassium is due to her diarrhea. Will place on potassium supplement. Discharge Plan Triage Chief Complaint: Weakness ED Provider: Tony Patel Dx/Rx/DC Orders Clinical Impression: Acute hypokalemia, Chronic diarrhea, Hypothermia, Type 2 diabetes mellitus, BMI 36.0-36.9,adult Instructions: ED Hypokalemia Prescriptions: New potassium chloride 20 mEq packet 20 meq PO BID Qty: 50 0RF No Action potassium chloride 20 mEq Tablet,Er Particles/Crystals 40 meq PO BIDCM 3 Days Qty: 12 0RF glipizide 5 mg tablet 5 mg PO BID 30 Days Qty: 60 2RF Rx Instructions: Hold if glucose less than 130 mg/dl metformin 500 mg tablet 500 mg PO BID 30 Days Qty: 60 1RF Rx Instructions: Start from 06/12/2024 Primary Care Provider: Care Physician,No Primary Referrals: Care Physician,No Primary [Primary Care Provider] - Activity Restrictions/Additional Instructions: With your history of chronic diarrhea this is probably the cause of your low potassium. You will need to have your potassium level checked in a week by your doctor. Strongly recommend/encourage you follow-up with GI for endoscopy whether it be a colonoscopy or sigmoidoscopy. Print Language: Luxembourgish Disposition Disposition: Home, Self Care
[2024-07-11 20:00] VITALS: BP 112/82; PULSE 89; RESP 16; O2SAT 97
[2024-07-11 21:10] VITALS: BP 109/81; PULSE 63; RESP 16; TEMP 36.6; O2SAT 96
== END 2024-07-11 21:12 | disposition home or self-care (01) ==
PROVIDERS: Emergency Provider Emergency Medicine; Visit Provider Emergency Medicine
DX: R53.1 Weakness (principal); E11.9 Type 2 diabetes mellitus without complications; K52.9 Noninfective gastroenteritis and colitis, unspecified; E87.6 Hypokalemia; T68.XXXA Hypothermia, initial encounter; Z79.84 Long term (current) use of oral hypoglycemic drugs
CPT/HCPCS: 80053; 81001; 82962; 85025; 99284

== ENCOUNTER 2025-04-19 09:47 | Emergency (ER) | payer OTHER, SELFPAY ==
[2025-04-19 09:48] VITALS: BP 121/83; PULSE 91; RESP 18; TEMP 36.8; O2SAT 99; BMI 36.4
--- NOTE | 2025-04-19 10:10 | EKG12_ITS ---
Test Reason : Blood Pressure : */* mmHG Vent. Rate : 80 BPM Atrial Rate : 80 BPM P-R Int : 160 ms QRS Dur : 76 ms QT Int : 400 ms P-R-T Axes : 51 -1 30 degrees QTcB Int : 461 ms Normal sinus rhythm Normal ECG Confirmed by Tres Cao ([id number]), development editor DJ TALBOT ([id number]) on 04/21/2025 10:03:26 AM Referred By: Confirmed By: Tres Cao
--- NOTE | 2025-04-19 10:12 | EX.ED.DYSGE1 ---
HPI History of Present Illness Chief Complaint: Weakness Informant: patient and spouse/S.O. Narrative Narrative: 49-year-old female presenting to the emergency room with the chief complaint of generalized weakness. Patient states she has a history of hyperglycemia that is managed with herbal remedies. She notes a longstanding history of chronic diarrhea but has not noticed a change in that. She states that she has intermittently developed episodes of hypokalemia that have felt where she is generally weak in the legs. She states she began to feel this way a few days ago. No vomiting. She is notes that she has not had much of an appetite for unknown reason. She denies any palpitations. She states she occasionally gets cramps in the legs. She denies any paresthesias. She is not on any diuretics. She is not currently taking any potassium supplementation. [facility] Medical History Diabetes Home Medications ?Medication ?Instructions ?Recorded ?Last Taken ?Type glipizide 5 mg tablet 5 mg PO BID 1 month #60 tabs 06/10/24 Unknown Rx metformin 500 mg tablet 500 mg PO BID 1 month #60 tabs 06/10/24 Unknown Rx potassium chloride 20 mEq 40 meq (2 x 20 mEq) PO BIDCM 3 06/10/24 Unknown Rx tablet,extended release(part/cryst) days #12 tabs potassium chloride 20 mEq oral 20 meq PO BID #50 ea 07/11/24 Unknown Rx packet potassium chloride 20 mEq See Rx Instructions .Route 04/19/25 Unknown Rx tablet,extended release (K-Tab) .COMPLEX #17 tabs Allergy/AdvReac Type Severity Reaction Status Date / Time No Known Allergies Allergy Verified 04/19/25 09:50 Social History household members: spouse Smoking Status: Never smoker ROS ROS ED Constitutional Constitutional ED: Denies chills or weight loss Eyes Eyes: Denies change in vision or diplopia ENT ENT ED: Denies ear pain, rhinorrhea or sore throat Cardiovascular Cardiovascular: Denies chest pain, orthopnea, palpitations or racing heartbeat Respiratory/Chest Respiratory/Chest: Denies cough, dyspnea or orthopnea Gastrointestinal Gastrointestinal: Denies abdominal pain, diarrhea, nausea or vomiting Genitourinary Genitourinary ED: Denies dysuria, hematuria or urinary frequency Musculoskeletal Musculoskeletal: Denies arthralgias or myalgias Integumentary Denies abscess or rash Neurologic Neurologic: Reports other Details: Generalized weakness ; Denies headache(s) or paresthesias Psychiatric Psychiatric: Denies anxiety, depression, suicidal ideation or suicidal thoughts Endocrine Endocrinology: Denies polydipsia, polyphagia or polyuria Allergic/Immunologic Allergic/Immunologic ED: Denies mouth swelling, tongue swelling or urticaria EXAM Physical Exam Const Vital Signs: 04/19/25 09:48 04/19/25 10:04 Temperature 98.2 F Temperature Source Oral Pulse Rate 91 Respiratory Rate 18 Respiratory Pattern Normal Blood Pressure 121/83 H Blood Pressure Mean 95 Pulse Ox 99 Oxygen Delivery Method Room Air Positive well nourished and well developed General Appearance ED: well developed HEENT Reports normocephalic, head/scalp atraumatic and moist mucous membranes Eyes PERRL and EOMs intact bilaterally Neck no lymphadenopathy, supple and no JVD Resp normal respiratory effort and clear to auscultation bilaterally Cardio regular rate, regular rhythm and no murmurs GI normal to inspection, nondistended, normoactive bowel sounds and non-tender Palpation: soft Back/Spine no CVA tenderness and normal ROM Extremity normal to inspection General Extremety ED: Negative for edema General Extremity: Negative for edema Neuro oriented x3 and CN's II-XII intact bilaterally Sensorium / Orientation: alert Motor Exam: strength 5/5 throughout Psych mental status grossly normal Mood & Affect: Negative for depressed or tearful Skin no rashes or lesions noted and no wounds MDM MDM MDM Narrative Medical decision making narrative: Differential diagnosis includes but not limited to electrolyte disorders (hypokalemia hyponatremia hypomagnesemia) cardiac dysrhythmia dehydration acute kidney injury hyperglycemia Magnesium returns at 2.1 potassium of 2.7 sodium of 131. Patient's EKG shows possible 8. patient received oral potassium supplementation as well as IV. She will be discharged home on oral potassium supplementations with instructions to have recheck of her potassium level and to discuss ongoing potassium supplementation given her chronic diarrhea. History & Record Review Discussion w/independent historian: Patient and Significant other Additional record(s) reviewed:: Prior ED visit and Prior labs Lab Data Attestation: I reviewed the patient's lab results. Labs: Laboratory Results - last 24 hr 04/19/25 10:33 WBC 9.3 RBC 5.01 Hgb 15.2 H Hct 40.6 MCV 83.4 MCH 31.2 MCHC 37.4 H RDW Std Deviation 37.5 RDW Coeff of Heath 12.8 Plt Count 316 MPV 9.4 Immature Gran % (Auto) 0.400 Neut % (Auto) 71.9 H Lymph % (Auto) 22.0 Mcdowell % (Auto) 4.8 Eos % (Auto) 0.4 Baso % (Auto) 0.5 Absolute Neuts (auto) 6.7 Absolute Lymphs (auto) 2.04 Nucleated RBC % 0 Sodium 131 L Potassium 2.7 L* Chloride 93 L Carbon Dioxide 22.9 Anion Gap 15 BUN 16 Creatinine 0.75 Estim Creat Clear Calc 89.25 Est GFR (MDRD) Non-Af 96 BUN/Creatinine Ratio 20.8 H Glucose 248 H Calcium 9.3 Magnesium 2.1 EKG Initial EKG: Attestation: I personally reviewed and interpreted this EKG as follows: Comments: Normal sinus rhythm ventricular rate of 80 bpm. No significant QRS widening or QT prolongation noted. Possible small U wave noted in I and precordial leads Discharge Plan Triage Chief Complaint: Weakness ED Provider: Jeff Lafleur Dx/Rx/DC Orders Clinical Impression: Acute hypokalemia, Weakness, Abnormal U wave present on electrocardiography Instructions: ED Hypokalemia Prescriptions: New potassium chloride [K-Tab] 20 mEq tablet extended release See Rx Instructions .ROUTE .COMPLEX Qty: 17 0RF Rx Instructions: 20 mEq p.o. twice daily x 5 days then 20 mEq p.o. daily x 1 week No Action potassium chloride 20 mEq Tablet,Er Particles/Crystals 40 meq PO BIDCM 3 Days Qty: 12 0RF glipizide 5 mg tablet 5 mg PO BID 30 Days Qty: 60 2RF Rx Instructions: Hold if glucose less than 130 mg/dl metformin 500 mg tablet 500 mg PO BID 30 Days Qty: 60 1RF Rx Instructions: Start from 06/12/2024 potassium chloride 20 mEq packet 20 meq PO BID Qty: 50 0RF Primary Care Provider: Care Physician,No Primary Referrals: Julianne Burrell MD [Med Staff - Deputy Prosecuting Attorney, Family Practice] NOT,DEFINED [Non-Staff, None] Activity Restrictions/Additional Instructions: I would recommend having your potassium level rechecked in 5 days. Please discuss potassium supplementation with your doctor. Print Language: Taiwanese Disposition Disposition: Home, Self Care
[2025-04-19 10:40] LABS: Immature Granulocytes Count 0.040 X10^3/uL (0.0-0.0); Mean Platelet Vol. 9.4 fl (6.2-12.0); NRBC Flagged by Analyzer 0 % (0-5); POSITIVE COUNT YES; Platelet Count 316 K/mm3 (150-450); RBC Distribution Width CV 12.8 % (11.6-14.6); RBC Distribution Width SD 37.5 fl (35.1-43.9); Red Blood Count 5.01 M/mm3 (4.2-5.4); White Blood Count 9.3 K/mm3 (4.4-11.0)
--- OUTSIDE RECORDS SUMMARY | 2025-04-19 10:52 | XMS RPT_ITS | CCD ---
Author Organization [facility] Care Team Providers Care Field Rep Name Role Phone Unavailable Primary Care Provider Unavailabl e Maura Gaines Consulting Unavailable Attila Matute Attending Unavailable Care Physician, No Primary Primary Care Unava ilMaura Alexander Admitting Unavailable Tony aPtel Attending Unavailable Care Physician, No Primary Primary Care Unava ilable Maura Gaines Consulting Unavailable Attila Matute Attending Unavailable Care Physician, No Primary Primary Care Unava ilable Maura Gaines Admitting Unavailable Attila Matute Consulting Unavailable Maura Gaines Attending Unavailable Dr. James Veras DO Emergency Provider Care Physician, No Primary Primary Care Provider Unavailable Eder ANN, Dr. Lorenzo Admit Provider Eder ANN, Dr. Lorenzo Other Provider Giovani ANN, Dr. Aiken Attending Provider Giovani ANN, Dr. Aiken Other Provider Jorge ANN, Dr. Jimenez Emergency Provider Medications Current Medications Medication Drug Class(es) Dates Sig (Normalized) Sig (Original) glipiZIDE 5 mg oral tablet (1 source) Sulfonylurea Start: 06-10-2024 take 1 tablet by mouth twice daily Glipizide 5 mg tablet Active 5 mg PO TWICE A DAY 60 June 10, 2024 1:00am Hold if glucose less than 130 mg/dl metFORMIN hydrochloride 500 mg oral tablet (1 source) Biguanide Start: 06-10-2024 take 1 tablet by mouth twice daily Metformin 500 mg tablet Active 500 mg PO TWICE A DAY 60 June 10, 2024 1:00am Start from 06/12/2024 potassium chloride 20 meq powder for oral solution (2 sources) Start: 07-11-2024 take 20 mEq by mouth twice daily Potassium Chloride 20 mEq packet Active 20 meq PO TWICE A DAY 50 July 11, 2024 12:00am Start: 06-10-2024 take 2 tablets by mo ut twice daily at mealtime Potassium Chloride 20 mEq Tablet,Er Particles/Crystals Active 40 meq PO TWICE DAILY WITH MEALS 12 June 10, 2024 1:00am Problems Active Problems Problem Classification Problem Date Documented Date Episodic/Chronic Diabetes mellitus without complication (1 source) Type 2 diabetes mellitus; Translations: [Type 2 diabetes mellitus without complications] 07-11-2024 Chronic Diabetes mellitus without complication (1 source) Hyperglycemia, unspecified; Translations: [Hyperglycemia, unspecified] Onset: 06-25-2024 Episodic Fluid and electrolyte disorders (4 sources) Hypokalemia; Translations: [Acute hypokalemia] Onset: 06-10-2024 06-09-2024 Episodic Influenza (2 sources) Influenza due to Influenza A virus; Translations: [Influenza due to other identified influenza virus with other respiratory manifestations] 06-18-2024 Episodic Malaise and fatigue (1 source) Weakness; Translations: [Weakness] Onset: 07-18-2024 Episodic Noninfectious gastroenteritis (1 source) Chronic diarrhea; Translations: [Noninfective gastroenteritis and colitis, unspecified] 07-11-2024 Episodic Other injuries and conditions due to external causes (1 source) Hypothermia; Translations: [Hypothermia, initial encounter] 07-11-2024 Episodic Other nutritional; endocrine; and metabolic disorders (1 source) Body mass index 30+ - obesity; Translations: [Body mass index (BMI) 36.0-36.9, adult] 07-11-2024 Chronic Other screening for suspected conditions (not mental disorders or infectious disease) (1 source) Patient encounter status; Translations: [Encounter for screening for malignant neoplasm of colon] 07-17-2024 Episodic Past or Other Problems Problem Classification Problem Date Documented Da te Episodic/Chronic Unclassified (1 source) Patient encounter status 07-17-2024 Results Test Name Value Interpretation Reference Range Facility Absolute neutrophil countOrd ered By: Tony Patel on 07-11-2024 Neutrophils (Bld) [#/Vol] 8.9 10*3/uL High 2.0-7.7 [facility] Anion gap in Serum or Plasma Ordered By: Tony Patel on 07-11-2024 Anion gap [Moles/Vol] 18 mmol/L High 5-15 [facility] BUN/creatinine ratioOrdered By: Tony Patel on 07-11-2024 Urea nitrogen/Creatinine [Mass ratio] 20.7 mg/mg High 10-20 [facility] Basophil percentageOrdered B y: Tony Patel on 07-11-2024 Basophils/100 WBC (Bld) 0.2 % 0-1 [facility] Bedside Glucoseon 07-11-2024 FINGERSTICK GLU 162 mg/dL High 74-106 [facility] Comment on above: Result Comment: KIRA HAM OF PATIENT CARE PER NURSING PROTOCOL Performed By: #### L 501.080 #### [facility] [address] [place], [address] Bilirubin Test strip Ql (U)O rdered By: Tony Patel on 07-11-2024 Bilirubin Ql (U) Negative Negative [facility] Bilirubin, totalOrdered By: Tony Patel on 07-11-2024 Bilirubin [Mass/Vol] 0.51 mg/dL 0.00-1.30 [facility] CBC W/Diff, Automatedon 06-22 Absolute Lymph 3.08 X10 3/uL Normal 0.83-4.51 [facility] Comment on above: Performed By: #### L 500.4050, L100.0100 #### [facility] [address] [place], [address] Absolute Neut 8.9 X10 3/uL High 2.0-7.7 [facility] Comment on above: Performed By: #### L [id number], L100.0100 #### [facility] [address] [place], [address] Basophils/100 WBC (Bld) 0.2 % Normal 0-1 [facility] Comment on above: Performed By: #### L 500.4050, L100.0100 #### [facility] [address] [place], [address] Eosinophils/100 WBC (Bld) 0.6 % Normal 0-5 [facility] Comment on above: Performed By: #### L [id number], L100.0100 #### [facility] [address] [place], [address] Erythrocyte distribution width (RBC) [Ratio] 12.6 % Normal 11.6-14.6 [facility] Comment on above: Performed By: #### L [id number], L100.0100 #### [facility] [address] [place], [address] Hematocrit (Bld) [Volume fraction] 45.3 % Normal 37-47 [facility] Comment on above: Performed By: #### L 500.4050, L100.0100 #### [facility] [address] [place], [address] Hemoglobin (Bld) [Mass/Vol] 16.8 g/dL High 12.0-15.0 [facility] Comment on above: Performed By: #### L 500.4050, L100.0100 #### [facility] [address] [place], [address] IG% 0.300 Normal 0.0-0.9 [facility] Comment on above: Result Comment: IG% - Immature Granulocytes (promyelocytes, myelocytes and metamyelocytes) > 1% indicates that a LEFT SHIFT is Present. Performed By: #### L 500.4050, L100.0100 #### [facility] [address] [place], [address] Lymphocytes/100 WBC (Bld) 23.5 % Normal 19-41 [facility] Comment on above: Performed By: #### L 500.4050, L100.0100 #### [facility] [address] [place], [address] MCH (RBC) [Entitic mass] 30.7 pg Normal 27.0-32.0 [facility] Comment on above: Performed By: #### L [id number], L100.0100 #### [facility] [address] [place], [address] MCHC (RBC) [Mass/Vol] 37.1 g/dL High 32-36 [facility] Comment on above: Performed By: #### L 500.4050, L100.0100 #### [facility] [address] [place], [address] MCV (RBC) [Entitic vol] 82.8 fL Normal 81-99 [facility] Comment on above: Performed By: #### L 500.4050, L100.0100 #### [facility] [address] [place], [address] Monocytes/100 WBC (Bld) 7.5 % Normal 0-10 [facility] Comment on above: Performed By: #### L 500.4050, L100.0100 #### [facility] [address] [place], [address] Neutrophils/100 WBC (Bld) 67.9 % Normal 47-70 [facility] Comment on above: Performed By: #### L 500.4050, L100.0100 #### [facility] [address] [place], [address] Nucleated RBC (Bld) [#/Vol] 0 10*3/uL Normal 0-5 [facility] Comment on above: Performed By: #### L 500.4050, L100.0100 #### [facility] [address] [place], [address] Platelet mean volume (Bld) [Entitic vol] 9.7 fL Normal 6.2-12.0 [facility] Comment on above: Performed By: #### L 500.4050, L100.0100 #### [facility] [address] [place], [address] Platelets (Bld) [#/Vol] 366 10*3/uL Normal 150-450 [facility] Comment on above: Performed By: #### L 500.4050, L100.0100 #### [facility] [address] [place], [address] RBC (Bld) [#/Vol] 5.47 10*6/uL High 4.2-5.4 [facility] Comment on above: Performed By: #### L [id number], L100.0100 #### [facility] [address] [place], [address] RDW SD 38.0 fl Normal 35.1-43.9 [facility] Comment on above: Performed By: #### L [id number], L100.0100 #### [facility] [address] [place], [address] WBC (Bld) [#/Vol] 13.1 10*3/uL High 4.4-11.0 [facility] Comment on above: Performed By: #### L 500.4050, L100.0100 #### [facility] [address] [place], [address] Carbon dioxide, total [Moles /volume] in Central venous bloodOrdered By: Tony Patel on 07-11-2024 CO2 [Moles/Vol] 20.7 mmol/L Low 21.0-32.0 [facility] Chloride assayOrdered By: Roderick Patel on 07-11-2024 Chloride [Moles/Vol] 91 mmol/L Low 98-108 [facility] Comprehensive Metabolic Prof ilon 07-11-2024 Albumin [Mass/Vol] 4.8 g/dL Normal 3.5-5.0 [facility] Comment on above: Performed By: #### L 500.4050, L100.0100 #### [facility] [address] [place], [address] Albumin/Globulin [Mass ratio] 1.4 {ratio} Normal 0.9-2.4 [facility] Comment on above: Performed By: #### L 500.4050, L100.0100 #### [facility] [address] [place], [address] ALK PHOS 85 U/L Normal 35-104 [facility] Comment on above: Performed By: #### L 500.4050, L100.0100 #### [facility] [address] [place], [address] ALT [Catalytic activity/Vol] 11 U/L Normal <=34 [facility] Comment on above: Performed By: #### L 500.4050, L100.0100 #### [facility] [address] [place], [address] AST [Catalytic activity/Vol] 20 U/L Normal <=31 [facility] Comment on above: Performed By: #### L 500.4050, L100.0100 #### [facility] [address] [place], [address] Bilirubin [Mass/Vol] 0.51 mg/dL Normal 0.00-1.30 [facility] Comment on above: Performed By: #### L 500.4050, L100.0100 #### [facility] [address] [place], [address] BUN/CRE 20.7 RATIO High 10-20 [facility] Comment on above: Performed By: #### L 500.4050, L100.0100 #### [facility] [address] [place], [address] Calcium [Mass/Vol] 10.0 mg/dL Normal 7.6-11.0 [facility] Comment on above: Performed By: #### L 500.4050, L100.0100 #### [facility] [address] [place], [address] Chloride [Moles/Vol] 91 mmol/L Low 98-108 [facility] Comment on above: Performed By: #### L 500.4050, L100.0100 #### [facility] [address] [place], [address] CO2 [Moles/Vol] 20.7 mmol/L Low 21.0-32.0 [facility] Comment on above: Performed By: #### L 500.4050, L100.0100 #### [facility] [address] [place], [address] Creatinine [Mass/Vol] 1.00 mg/dL Normal 0.70-1.20 [facility] Comment on above: Performed By: #### L 500.4050, L100.0100 #### [facility] [address] [place], [address] ECRCL 67.08 ml/min Normal 50-250 [facility] Comment on above: Performed By: #### L 500.4050, L100.0100 #### [facility] [address] [place], [address] GAP 18 High 5-15 [facility] Comment on above: Performed By: #### L 500.4050, L100.0100 #### [facility] [address] [place], [address] GFR/1.73 sq M.predicted among non-blacks MDRD (S/P/Bld) [Vol rate/Area] 68 mL/min/{1.73_m2} Normal >60 [facility] Comment on above: Result Comment: mL/m in/1.73m2 CKD-EPI Creatinine Equation (2020) Performed By: #### L 500.4050, L100.0100 #### [facility] [address] [place], [address] Globulin (S) [Mass/Vol] 3.4 g/dL Normal 2.2-4.2 [facility] Comment on above: Performed By: #### L 500.4050, L100.0100 #### [facility] [address] [place], [address] Glucose [Mass/Vol] 140 mg/dL High 70-99 [facility] Comment on above: Performed By: #### L 500.4050, L100.0100 #### [facility] [address] [place], [address] Potassium [Moles/Vol] 2.8 mmol/L Low 3.3-5.1 [facility] Comment on above: Performed By: #### L 500.4050, L100.0100 #### [facility] [address] [place], [address] Sodium [Moles/Vol] 130 mmol/L Low 133-145 [facility] Comment on above: Performed By: #### L 500.4050, L100.0100 #### [facility] [address] [place], [address] T PROT 8.1 g/dL Normal 5.9-8.4 [facility] Comment on above: Performed By: #### L 500.4050, L100.0100 #### [facility] [address] [place], [address] Urea nitrogen [Mass/Vol] 21 mg/dL High 4-19 [facility] Comment on above: Performed By: #### L 500.4050, L100.0100 #### [facility] [address] [place], [address] Emergency Department Summary on 07-11-2024 Emergency Department Summary [facility] Medical Records Department [address] [place] [address] Emergency Department Summary 07/11/24 MR#: [id number] Acct: [id number] Name: STEFFI SAEED Rep #: [id number] : 1975 49 From: Tony Patel MD PCP: Care Physician,No Primary Status:REG ER Location: ED HPI History of Present Illness Chief Complaint: Weakness Detail of Chief Complaint: I do not feel right since Sunday Informant: patient and spouse/S.O. Onset/Context/Timin g Onset: Days Context: Sudden Onset Timing: Continuous Quality: Feels different, does not feel right Location: No specific location, generalized Current Severity: Unable to quantitate Maximum Severity: Unable to quantitate Worsened by: Nothing Relieved by: Nothing Associated Symptoms Associated Symptoms: Legs are wobbly when she walks Narrative Narrative: Patient is a 49-year-old woman. She has history of type 2 diabetes. She was prescribed potassium in the past for hypokalemia. She denies fever, chills night sweats. Denies headache, visual, ocular auditory symptoms. She denies problems with speech or swallowing. She denies rhinorrhea, congestion, postnasal drainage sore throat. She denies chest pain. Denies cough or shortness of breath. She denies difficulty breathing. She denies abdominal pain, nausea, vomiting has chronic diarrhea. Patient denies dysuria, frequency, urgency or hematuria. Patient denies skin lesions. Patient denies paresthesia, anesthesia or motor weakness. Patient denies orthostatic symptoms. Patient denies vertiginous symptoms. Patient's sugars have been running between 1 20-1 50 which is about her baseline. I was walking out the room informing that last time she felt this way her potassium was low. Prior similar symptoms: Yes Recent Illness/Hospitaliza tion: No PFSH PFSH Medical History Diabetes Home Medications ???Medication ???Instructions ???Recorded ???Last Taken ???Type glipizide 5 mg tablet 5 mg PO BID 1 month #60 tabs 06/10 Unknown Rx metformin 500 mg tablet 500 mg PO BID 1 month #60 tabs Unknown Rx potassium chloride 20 mEq 40 meq (2 x 20 mEq) PO BIDCM 3 Unknown Rx tablet,extended release(part/cryst) days #12 tabs potassium chloride 20 mEq oral 20 meq PO BID #50 ea 07/11/24 Unkn own Rx packet Allergy/AdvReac Type Severity Reaction Status Date / Time No Known Allergies Allergy Verified 07/11/24 16:26 Social History (Updated 07/11/24 @ 19:[address] Tony Patel MD) household members: spouse Smoking Status: Never smoker ROS ROS ED Constitutional Constitutional ED: Denies chills, fever(s), subjective, sweats or weight loss Eyes Eyes: Denies blurry vision or change in vision ENT ENT ED: Denies ear pain, rhinorrhea or sore throat Cardiovascular Cardiovascular: Denies chest pain, orthopnea, palpitations, paroxysmal nocturnal dyspnea or racing heartbeat Respiratory/Chest Respiratory/Chest: Denies cough, dyspnea on exertion, orthopnea or paroxysmal nocturnal dyspnea Gastrointestinal Gastrointestinal: Reports diarrhea and other Details: Diarrhea is chronic. She has never had a colonoscopy. She did have stool tests. She does not know the results. ; Denies abdominal pain, constipation, melena, nausea or vomiting Genitourinary Genitourinary ED: Denies dysuria, hematuria or urinary frequency Musculoskeletal Musculoskeletal: Denies arthralgias, back pain or myalgias Integumentary Denies abscess, Abrasions or rash Neurologic Neurologic: Reports weakness; Denies headache(s) or paresthesias Psychiatric Psychiatric: Denies anxiety or depression Hematologic/Lymphat ic Hematologic/Lymphat ic: Reports systems reviewed and no addt'l complaints, except as documented EXAM Physical Exam Const Vital Signs: 07/11/24 16:25 07/11/24 16:46 07/11/24 17:13 Temperature 96.1 F L Temperature Source Temporal Pulse Rate 98 Pulse Rate [Lying] 91 Pulse Rate [Sitting (for 1 minute prior to obtaining)] 92 Pulse Rate [Standing (for 1 minute prior to obtaining)] 101 H Respiratory Rate 14 Respiratory Effort Normal Respiratory Pattern Normal Blood Pressure 119/83 H Blood Pressure [Lying] 113/74 Blood Pressure [Sitting (for 1 minute prior to obtaining)] 113/86 H Blood Pressure [Standing (for 1 minute prior to obtaining)] 103/82 H Blood Pressure Mean 95 Blood Pressure Mean [Lying] 87 Blood Pressure Mean [Sitting (for 1 minute prior to obtaining)] 95 Blood Pressure Mean [Standing (for 1 minute prior to obtaining)] 89 Pulse Ox 98 Oxygen Delivery Method Room Air 07/11/24 18:25 07/11/24 20:00 Temperature Temperature Source Pulse Rate 89 89 Pulse Rate [Lying] Pulse Rate [Sitting (for 1 neel (more content not included)... Normal [facility] Eosinophil percentageOrdered By: Tony Patel on 07-11-2024 Eosinophils/100 WBC (Bld) 0.6 % 0-5 [facility] Epithelial cells.squamous LM Ql (Urine sed)Ordered By: Tony Patel on 07-11-2024 Epithelial cells.squamous LM.HPF (Urine sed) [#/Area] 0 /[HPF] 5-10 [facility] Erythrocyte distribution wid th ratioOrdered By: Tony Patel on 07-11-2024 Erythrocyte distribution width (RBC) [Ratio] 12.6 % 11.6-14.6 [facility] Erythrocyte distribution wid th standard deviationOrdered By: Tony Patel on 07-11-2024 Erythrocyte distribution width (RBC) [Entitic vol] 38.0 fL 35.1-43.9 [facility] Estimation of creatinine timothy aranceOrdered By: Tony Patel on 07-11-2024 Estimated Creatinine Clearance Calc 67.08 ml/min 50-250 [facility] GFR/1.73 sq M.predicted pedro g non-blacks MDRD (S/P/Bld) [Vol rate/Area]Ordered By: Tony Patel on 07-11-2024 Estimated GFR (MDRD) Non-Af Amer 68 >60 [facility] Comment on above: mL/min/1.73m2 CKD-EP I Creatinine Equation (2020) Glucose Ql (U)Ordered By: Roderick Patel on 07-11-2024 Urine Glucose (UA) Normal mg/dl Normal [facility] Glucose measurement at bedsi deOrdered By: Tony Patel on 07-11-2024 Bedside Glucose (Misc Panel) 162 mg/dL High 74-106 [facility] Comment on above: MANAGEMENT OF PATIEN T CARE PER NURSING PROTOCOL Hematocrit Auto (Bld) [Volum e fraction]Ordered By: Tony Patel on 07-11-2024 Hematocrit (Bld) [Volume fraction] 45.3 % 37-47 [facility] Hemoglobin measurementOrdere d By: Tony Patel on 07-11-2024 Hemoglobin (Bld) [Mass/Vol] 16.8 g/dL High 12.0-15.0 [facility] Immature granulocytes/100 WB C Auto (Bld)Ordered By: Tony Patel on 07-11-2024 Immature granulocytes/100 WBC (Bld) 0.300 % 0.0-0.9 [facility] Comment on above: IG% - Immature Granu locytes (promyelocytes, myelocytes and metamyelocytes) > 1% indicates that a LEFT SHIFT is Present. Ketones Test strip Ql (U)Ord ered By: Tony Patel on 07-11-2024 Ketones Ql (U) 5 mg/dl High Negative [facility] - Chemistry and C hemistry - challengeOrdered By: Tonyyadiel Patel on 07-11-2024 AST [Catalytic activity/Vol] 20 U/L <32 [facility] Lymphocytes Auto (Unsp spec) [#/Vol]Ordered By: Tony Patel on 07-11-2024 Lymphocytes (Bld) [#/Vol] 3.08 10*3/uL 0.83-4.51 [facility] Lymphocytes/100 WBC Auto (Un sp spec)Ordered By: Tony Patel on 07-11-2024 Lymphocytes/100 WBC (Bld) 23.5 % 19-41 [facility] MCV (mean corpuscular volume ) determinationOrdered By: Tony Patel on 07-11-2024 MCV (RBC) [Entitic vol] 82.8 fL 81-99 [facility] Mean corpuscular hemoglobin (MCH) determinationOrdered By: Tony Patel on 07-11-2024 MCH (RBC) [Entitic mass] 30.7 pg 27.0-32.0 [facility] Mean corpuscular hemoglobin concentration (MCHC) determinationOrdered By: Tonyyadiel Patel on 07-11-2024 MCHC (RBC) [Mass/Vol] 37.1 g/dL High 32-36 [facility] Mean platelet volume determi nationOrdered By: Tony Patel on 07-11-2024 Platelet mean volume (Bld) [Entitic vol] 9.7 fL 6.2-12.0 [facility] Microscopic analysis of urin e for red blood cells (RBC)Ordered By: Tony Patle on 07-11-2024 Urine RBC 0 SEEN /hpf 0-5 [facility] Monocyte percentageOrdered B y: Tony Patel on 07-11-2024 Monocytes/100 WBC (Bld) 7.5 % 0-10 [facility] Mucus LM Ql (Urine sed)Order ed By: Tony Patel on 07-11-2024 Mucus Ql (Urine sed) 1+ /hpf [facility] Neutrophil percentageOrdered By: Tony Patel on 07-11-2024 Neutrophils/100 WBC (Bld) 67.9 % 47-70 [facility] Nitrite Test strip Ql (U)Ord ered By: Tony Patel on 07-11-2024 Nitrite Ql (U) Negative Negative [facility] Nucleated red blood cell per centageOrdered By: Tony Patel on 07-11-2024 Nucleated RBC/100 WBC (Bld) [Ratio] 0 % 0-5 [facility] Platelet countOrdered By: Roderick Patel on 07-11-2024 Platelets (Bld) [#/Vol] 366 10*3/uL 150-450 [facility] Potassium (Unsp spec) [Mass/ Vol]Ordered By: Tony Patel on 07-11-2024 Potassium [Moles/Vol] 2.8 mmol/L Low 3.3-5.1 [facility] Protein Test strip Ql (U)Ord ered By: Tony Patel on 07-11-2024 Protein Ql (U) 30 mg/dl High Negative [facility] RBC Auto (Bld) [#/Vol]Ordere d By: Tony Patel on 07-11-2024 RBC (Bld) [#/Vol] 5.47 10*6/uL High 4.2-5.4 [facility] Serum creatinine measurement (mass/volume)Ordered By: Tony Patel on 07-11-2024 Creatinine [Mass/Vol] 1.00 mg/dL 0.70-1.20 [facility] Serum globulin measurementOr dered By: Tony Patel on 07-11-2024 Globulin (S) [Mass/Vol] 3.4 g/dL 2.2-4.2 [facility] Serum glucose measurement (m ass/volume)Ordered By: Tonyyadiel Patel on 07-11-2024 Glucose [Mass/Vol] 140 mg/dL High 70-99 [facility] Serum or plasma alanine douglas otransferase (ALT) measurementOrdered By: Tony Patel on 07-11-2024 ALT [Catalytic activity/Vol] 11 U/L <35 [facility] Serum or plasma albumin mazin urement (mass/volume)Ordered By: Tony Patel on 07-11-2024 Albumin [Mass/Vol] 4.8 g/dL 3.5-5.0 [facility] Serum or plasma albumin/glob ulin mass ratioOrdered By: [facility] on 07-11-2024 Albumin/Globulin [Mass ratio] 1.4 {ratio} 0.9-2.4 [facility] Serum or plasma alkaline sona sphatase measurementOrdered By: Tony Patel on 07-11-2024 ALP [Catalytic activity/Vol] 85 U/L 35-104 [facility] Serum or plasma calcium mazin urement (mass/volume)Ordered By: Tony Patel on 07-11-2024 Calcium [Mass/Vol] 10.0 mg/dL 7.6-11.0 [facility] Serum or plasma urea nitroge n measurement (mass/volume)Ordered By: Tonyyadiel Patel on 07-11-2024 Urea nitrogen [Mass/Vol] 21 mg/dL High 4-19 [facility] Sodium levelOrdered By: Tony Patel on 07-11-2024 Sodium [Moles/Vol] 130 mmol/L Low 133-145 [facility] Total proteinOrdered By: [facility] on 07-11-2024 Protein [Mass/Vol] 8.1 g/dL 5.9-8.4 [facility] Urinalysis, Completeon 07-11 BACTERIA 1+ /hpf Normal None Seen [facility] Comment on above: Order Comment: CLEAN CATCH Performed By: #### L 500.2500, L501.9584, L100.0100, L501.5933 #### [facility] [address] [place], [address] EPI,SQUAMOUS 0-5 SEEN Normal 5-10 [facility] Comment on above: Order Comment: CLEAN CATCH Performed By: #### L 500.2500, L501.9520, L100.0100, L501.9985 #### [facility] [address] [place], [address] Mucus Ql (Urine sed) 1+ /hpf Normal [facility] Comment on above: Order Comment: CLEAN CATCH Performed By: #### L 500.2500, L501.9520, L100.0100, L501.9985 #### [facility] [address] [place], [address] RBC 0 SEEN Normal 0-5 [facility] Comment on above: Order Comment: CLEAN CATCH Performed By: #### L 500.2500, L501.9520, L100.0100, L501.9985 #### [facility] [address] [place], [address] WBC 0 SEEN Normal 0-5 [facility] Comment on above: Order Comment: CLEAN CATCH Performed By: #### L 500.2500, L501.9520, L100.0100, L501.9985 #### [facility] [address] [place], [address] Urine blood detectionOrdered By: Tony Patel on 07-11-2024 Urine Occult Blood Negative Negative [facility] Urine clarityOrdered By: Tony Patel on 07-11-2024 Clarity (U) Clear Clear [facility] Urine color determinationOrd ered By: Tony Patel on 07-11-2024 Color (U) Yellow Yellow [facility] Urine leukocyte esterase det ection by dipstickOrdered By: Tony Patel on 07-11-2024 Leukocyte esterase Test strip Ql (U) Negative Negative [facility] Urine pHOrdered By: Tony cotto on 07-11-2024 pH (U) 6.0 [pH] 5.0 - 8.0 [facility] Urine sediment bacteria coun t by microscopy (number/high power field)Ordered By: Tony Patel on 07-11-2024 Bacteria LM.HPF (Urine sed) [#/Area] 1 /[HPF] None Seen [facility] Urine specific gravity measu rementOrdered By: Tonyyadiel Patel on 07-11-2024 Specific gravity (U) [Rel density] 1.015 1.002-1.030 [facility] Urobilinogen Ql (U)Ordered B y: Tony Patel on 07-11-2024 Urine Urobilinogen Normal mg/dl Normal [facility] White blood cell (WBC) count Ordered By: Tonyyadiel Patel on 07-11-2024 WBC (Bld) [#/Vol] 13.1 10*3/uL High 4.4-11.0 [facility] White blood cell countOrdere d By: Tony Patel on 07-11-2024 Urine WBC 0 SEEN /hpf 0-5 [facility] Urine Cultureon 06-11-2024 URC Mixed Gram Positive Organisms [place] Count 11,000-25,000 [facility] Mixed contaminants. Submit a new specimen if indicated. Normal [facility] Comment on above: Performed By: #### L 500.2500, L501.9520, L100.0100, L501.9985 #### [facility] [address] [place], [place], [id number] Absolute neutrophil countOrd ered By: Maura Gaines on 06-10-2024 Neutrophils (Bld) [#/Vol] 3.5 10*3/uL 2.0-7.7 [facility] Basic Metabolic Profile (BMP )on 06-10-2024 BUN/CRE 16.6 RATIO Normal 10-20 [facility] Comment on above: Performed By: #### L 500.2500, L501.9520, L100.0100, L501.9985 #### [facility] [address] [place], [place], [id number] CA,Total 8.5 mg/dL Normal 8.5-10.1 [facility] Comment on above: Performed By: #### L 500.2500, L501.9520, L100.0100, L501.9985 #### [facility] [address] [place], [address] Chloride [Moles/Vol] 109 mmol/L High 98-107 [facility] Comment on above: Performed By: #### L 500.2500, L501.9520, L100.0100, L501.9985 #### [facility] [address] [place], [address] CO2 [Moles/Vol] 22.0 mmol/L Normal 21.0-32.0 [facility] Comment on above: Performed By: #### L 500.2500, L501.9520, L100.0100, L501.9985 #### [facility] [address] [place], [address] Creatinine [Mass/Vol] 0.66 mg/dL Normal 0.55-1.02 [facility] Comment on above: Result Comment: The validity of the calculated GFR GFRAA in patients over 70 years has not been determined. Clinical correlation is essential. Performed By: #### L 500.2500, L501.9520, L100.0100, L501.9985 #### [facility] [address] [place], [address] ECRCL 103.92 ml/min Normal [facility] Comment on above: Performed By: #### L 500.2500, L501.9520, L100.0100, L501.9985 #### [facility] [address] [place], [address] EST GFR - AA 121 mL/min Normal >60 [facility] Comment on above: Result Comment: Afri can Nigerien GFR Calc Performed By: #### L 500.2500, L501.9520, L100.0100, L501.9985 #### [facility] [address] [place], [address] GAP 7 Normal 5-15 [facility] Comment on above: Performed By: #### L 500.2500, L501.9520, L100.0100, L501.9985 #### [facility] [address] [place], [address] GFR/1.73 sq M.predicted among non-blacks MDRD (S/P/Bld) [Vol rate/Area] 100 mL/min/{1.73_m2} Normal >60 [facility] Comment on above: Result Comment: Non- GFR Calc Performed By: #### L 500.2500, L501.9520, L100.0100, L501.9985 #### [facility] [address] [place], [address] Glucose [Mass/Vol] 176 mg/dL High 74-106 [facility] Comment on above: Result Comment: Fast ing Glucose result greater than or equal to 126 mg/dL suggests DIABETES MELLITUS per A.D.A. criteria. Performed By: #### L 500.2500, L501.9520, L100.0100, L501.9985 #### [facility] [address] [place], [address] Potassium [Moles/Vol] 3.1 mmol/L Low 3.5-5.1 [facility] Comment on above: Performed By: #### L 500.2500, L501.9520, L100.0100, L501.9985 #### [facility] [address] [place], [address] Sodium [Moles/Vol] 138 mmol/L Normal 136-145 [facility] Comment on above: Performed By: #### L 500.2500, L501.9520, L100.0100, L501.9985 #### [facility] [address] [place], [address] Urea nitrogen [Mass/Vol] 11 mg/dL Normal 7-18 [facility] Comment on above: Performed By: #### L 500.2500, L501.9520, L100.0100, L501.9985 #### [facility] [address] [place], [address] Basophil percentageOrdered B y: Maura Gaines on 06-10-2024 Basophils/100 WBC (Bld) 0.3 % 0-1 [facility] Bedside Glucoseon 06-10-2024 FINGERSTICK GLU 271 mg/dL High 74-106 [facility] Comment on above: Result Comment: KIRA GEMENT OF PATIENT CARE PER NURSING PROTOCOL Performed By: #### L 500.2500, L501.9520, L100.0100, L501.9985 #### [facility] [address] [place], [address] FINGERSTICK GLU 190 mg/dL High 74-106 [facility] Comment on above: Result Comment: KIRA GEMENT OF PATIENT CARE PER NURSING PROTOCOL Performed By: #### L 500.2500, L501.9520, L100.0100, L501.9985 #### [facility] [address] [place], [address] Blood urea nitrogen (BUN)/cr eatinine ratioOrdered By: Maura Gaines on 06-10-2024 Urea nitrogen/Creatinine [Mass ratio] 16.6 mg/mg 10-20 [facility] CBC W/Diff, Automatedon 05-24 Absolute Lymph 2.28 X10 3/uL Normal 0.83-4.51 [facility] Comment on above: Performed By: #### L 500.2500, L501.9520, L100.0100, L501.9985 #### [facility] [address] [place], [address] Absolute Neut 3.5 X10 3/uL Normal 2.0-7.7 [facility] Comment on above: Performed By: #### L 500.2500, L501.9520, L100.0100, L501.9985 #### [facility] [address] [place], [address] Basophils/100 WBC (Bld) 0.3 % Normal 0-1 [facility] Comment on above: Performed By: #### L 500.2500, L501.9520, L100.0100, L501.9985 #### [facility] [address] [place], [address] Eosinophils/100 WBC (Bld) 0.8 % Normal 0-5 [facility] Comment on above: Performed By: #### L 500.2500, L501.9520, L100.0100, L501.9985 #### [facility] [address] [place], [address] Erythrocyte distribution width (RBC) [Ratio] 12.7 % Normal 11.6-14.6 [facility] Comment on above: Performed By: #### L 500.2500, L501.9520, L100.0100, L501.9985 #### [facility] [address] [place], [address] Hematocrit (Bld) [Volume fraction] 38.8 % Normal 37-47 [facility] Comment on above: Performed By: #### L 500.2500, L501.9520, L100.0100, L501.9985 #### [facility] [address] [place], [address] Hemoglobin (Bld) [Mass/Vol] 13.8 g/dL Normal 12.0-15.0 [facility] Comment on above: Performed By: #### L 500.2500, L501.9520, L100.0100, L501.9985 #### [facility] [address] [place], [address] IG% 0.300 Normal 0.0-0.9 [facility] Comment on above: Result Comment: IG% - Immature Granulocytes (promyelocytes, myelocytes and metamyelocytes) > 1% indicates that a LEFT SHIFT is Present. Performed By: #### L 500.2500, L501.9520, L100.0100, L501.9985 #### [facility] [address] [place], [address] Lymphocytes/100 WBC (Bld) 37.1 % Normal 19-41 [facility] Comment on above: Performed By: #### L 500.2500, L501.9520, L100.0100, L501.9985 #### [facility] [address] [place], [address] MCH (RBC) [Entitic mass] 30.1 pg Normal 27.0-32.0 [facility] Comment on above: Performed By: #### L 500.2500, L501.9520, L100.0100, L501.9985 #### [facility] [address] [place], [address] MCHC (RBC) [Mass/Vol] 35.6 g/dL Normal 32-36 [facility] Comment on above: Performed By: #### L 500.2500, L501.9520, L100.0100, L501.9985 #### [facility] [address] [place], [address] MCV (RBC) [Entitic vol] 84.5 fL Normal 81-99 [facility] Comment on above: Performed By: #### L 500.2500, L501.9520, L100.0100, L501.9985 #### [facility] [address] [place], [address] Monocytes/100 WBC (Bld) 5.2 % Normal 0-10 [facility] Comment on above: Performed By: #### L 500.2500, L501.9520, L100.0100, L501.9985 #### [facility] [address] [place], [address] Neutrophils/100 WBC (Bld) 56.3 % Normal 47-70 [facility] Comment on above: Performed By: #### L 500.2500, L501.9520, L100.0100, L501.9985 #### [facility] [address] [place], [address] Nucleated RBC (Bld) [#/Vol] 0 10*3/uL Normal 0-5 [facility] Comment on above: Performed By: #### L 500.2500, L501.9520, L100.0100, L501.9985 #### [facility] [address] [place], [address] Platelet mean volume (Bld) [Entitic vol] 9.7 fL Normal 6.2-12.0 [facility] Comment on above: Performed By: #### L 500.2500, L501.9520, L100.0100, L501.9985 #### [facility] [address] [place], [address] Platelets (Bld) [#/Vol] 249 10*3/uL Normal 150-450 [facility] Comment on above: Performed By: #### L 500.2500, L501.9520, L100.0100, L501.9985 #### [facility] [address] [place], [address] RBC (Bld) [#/Vol] 4.59 10*6/uL Normal 4.2-5.4 [facility] Comment on above: Performed By: #### L 500.2500, L501.9520, L100.0100, L501.9985 #### [facility] [address] [place], [address] RDW SD 38.6 fl Normal 35.1-43.9 [facility] Comment on above: Performed By: #### L 500.2500, L501.9520, L100.0100, L501.9985 #### [facility] [address] [place], [address] WBC (Bld) [#/Vol] 6.1 10*3/uL Normal 4.4-11.0 [facility] Comment on above: Performed By: #### L 500.2500, L501.9520, L100.0100, L501.9985 #### [facility] [address] [place], [address] Carbon dioxide measurementOr dered By: Maura Gaines on 06-10-2024 CO2 [Moles/Vol] 22.0 mmol/L 21.0-32.0 [facility] Chloride measurementOrdered By: Maura Gaines on 06-10-2024 Chloride [Moles/Vol] 109 mmol/L High 98-107 [facility] Discharge Instructionon 05-24 Discharge Instruction [facility] Medical Records Department [address] [place] [address] Instructions for Home/Discharge Instructions 06/10/24 0940 MR#: [id number] Acct: [id number] Name: STEFFI SAEED Rep #: [id number] : 1975 49 From: Attila Matute MD PCP: Care Physician,No Primary Status:ADM HOWARD Discharge Instructions Diet Discharge Diet: Low fat / Low cholesterol, 1800 Calorie Control Diet and 2000 mg Sodium Diet DC O2, CPAP, BIPAP needs Home O2 Discharge instructions: No Dressing / Incision Discharge Activity: Return to Normal Activity Weight Bearing Status: Weight bearing as tolerated Dressing / Incision Call your doctor if you observe: Fever of 101 or Higher, Coldness, Increased Pain, Numbness or Tingling, Change in Color, Inability to urinate, Inability to have a bowel movement, Shortness of breath, Dizziness, Fainting spells, Swelling in the ankles, Chest pain, Prolonged hiccupping, Increased palpitations (irregular heartbeat) and Calf discomfort Follow Up Care When: IN 2 WEEKS Test Results: Test results from this visit will be discussed in further detail at your follow-up appointment, if applicable. Discharge Plan Admission Admit Date/Time: 06/09/24 14:04 Attending Provider: Attila Matute Primary Care Provider: Care Physician,No Primary Consulting Providers: Maura Gaines Discharge Orders/Prescription s Prescriptions: New potassium chloride 20 mEq Tablet,Er Particles/Crystals 40 meq PO BIDCM 3 Days Qty: 12 0RF glipizide 5 mg tablet 5 mg PO BID 30 Days Qty: 60 2RF Rx Instructions: Hold if glucose less than 130 mg/dl metformin 500 mg tablet 500 mg PO BID 30 Days Qty: 60 1RF Rx Instructions: Start from 06/12/2024 Referrals / Follow Up: Care Physician,No Primary [Primary Care Provider] - NOT,DEFINED [Non-Staff] - Disposition Disposition (needs filled in before D/C Order can be placed): Home, Self Care 06/10/24 1200 Attila Matute MD CC: Dr. Maura Gaines MD; No Primary Care Physician Signed Normal [facility] Eosinophil percentageOrdered By: Maura Gaines on 06-10-2024 Eosinophils/100 WBC (Bld) 0.8 % 0-5 [facility] Erythrocyte distribution wid th ratioOrdered By: Maura Gaines on 06-10-2024 Erythrocyte distribution width (RBC) [Ratio] 12.7 % 11.6-14.6 [facility] Erythrocyte distribution wid th standard deviationOrdered By: Maura Gaines on 06-10-2024 Erythrocyte distribution width (RBC) [Entitic vol] 38.6 fL 35.1-43.9 [facility] Estimated glomerular filtrat ion rate (GFR) AmericanOrdered By: Maura Gaines on 06-10-2024 Estimated GFR (MDRD) Amer 121 mL/min >60 [facility] Comment on above: GFR Calc Estimation of creatinine timothy aranceOrdered By: Maura Gaines on 06-10-2024 Estimated Creatinine Clearance Calc 103.92 ml/min [facility] Glomerular filtration rate ( GFR) estimationOrdered By: Maura Gaines on 06-10-2024 Estimated GFR (MDRD) Non-Af Amer 100 mL/min >60 [facility] Comment on above: Non- GFR Calc Glucose measurementOrdered B y: Maura Gaines on 06-10-2024 Glucose [Mass/Vol] 176 mg/dL High 74-106 [facility] Comment on above: Fasting Glucose resu lt greater than or equal to 126 mg/dL suggests DIABETES MELLITUS per A.D.A. criteria. Glucose measurement at bedsi deOrdered By: Attila Matute on 06-10-2024 Bedside Glucose (Misc Panel) 271 mg/dL High 74-106 [facility] Comment on above: MANAGEMENT OF PATIEN T CARE PER NURSING PROTOCOL Hematocrit Auto (Bld) [Volum e fraction]Ordered By: Maura Gaines on 06-10-2024 Hematocrit (Bld) [Volume fraction] 38.8 % 37-47 [facility] Hemoglobin A1con 06-10-2024 HbA1c (Bld) [Mass fraction] 7.6 % High 3.8-5.6 [facility] Comment on above: Result Comment: Norm al < 5.7 % Prediabetic 5.7 - 6.4 % Diabetic >or= 6.5 % Please note range changes. Performed By: #### L 500.2500, L501.9520, L100.0100, L501.9985 #### [facility] [address] [facility] [place], [address] Hemoglobin A1c percentageOrd ered By: Maura Gaines on 06-10-2024 HbA1c (Bld) [Mass fraction] 7.6 % High 3.8-5.6 [facility] Comment on above: Normal < 5.7 % Predi abetic 5.7 - 6.4 % Diabetic >or= 6.5 % Please note range changes. Hemoglobin measurementOrdere d By: Maura Gaines on 06-10-2024 Hemoglobin (Bld) [Mass/Vol] 13.8 g/dL 12.0-15.0 [facility] Immature granulocytes/100 WB C Auto (Bld)Ordered By: Maura Gaines on 06-10-2024 Immature granulocytes/100 WBC (Bld) 0.300 % 0.0-0.9 [facility] Comment on above: IG% - Immature Granu locytes (promyelocytes, myelocytes and metamyelocytes) > 1% indicates that a LEFT SHIFT is Present. Lymphocytes Auto (Unsp spec) [#/Vol]Ordered By: Maura Gaines on 06-10-2024 Lymphocytes (Bld) [#/Vol] 2.28 10*3/uL 0.83-4.51 [facility] Lymphocytes/100 WBC Auto (Un sp spec)Ordered By: Maura Gaines on 06-10-2024 Lymphocytes/100 WBC (Bld) 37.1 % 19-41 [facility] MCV (mean corpuscular volume ) determinationOrdered By: Maura Gaines on 06-10-2024 MCV (RBC) [Entitic vol] 84.5 fL 81-99 [facility] Mean corpuscular hemoglobin (MCH) determinationOrdered By: Maura Gaines on 06-10-2024 MCH (RBC) [Entitic mass] 30.1 pg 27.0-32.0 [facility] Mean corpuscular hemoglobin concentration (MCHC) determinationOrdered By: Maura Gaines on 06-10-2024 MCHC (RBC) [Mass/Vol] 35.6 g/dL 32-36 [facility] Comment on above: Delta: 37.9 on 06/09 Mean platelet volume determi nationOrdered By: Maura Gaines on 06-10-2024 Platelet mean volume (Bld) [Entitic vol] 9.7 fL 6.2-12.0 [facility] Monocyte percentageOrdered B y: Maura Gaines on 06-10-2024 Monocytes/100 WBC (Bld) 5.2 % 0-10 [facility] Neutrophil percentageOrdered By: Maura Gaines on 06-10-2024 Neutrophils/100 WBC (Bld) 56.3 % 47-70 [facility] Nucleated red blood cell per centageOrdered By: Maura Gaines on 06-10-2024 Nucleated RBC/100 WBC (Bld) [Ratio] 0 % 0-5 [facility] Platelet countOrdered By: Otis Gaines on 06-10-2024 Platelets (Bld) [#/Vol] 249 10*3/uL 150-450 [facility] Potassium measurementOrdered By: Maura Gaines on 06-10-2024 Potassium [Moles/Vol] 3.1 mmol/L Low 3.5-5.1 [facility] RBC Auto (Bld) [#/Vol]Ordere d By: Maura Gaines on 06-10-2024 RBC (Bld) [#/Vol] 4.59 10*6/uL 4.2-5.4 [facility] Serum anion gap measurementO rdered By: Maura Gaines on 06-10-2024 Anion gap [Moles/Vol] 7 mmol/L 09-04 [facility] Serum or plasma calcium mazin urement (mass/volume)Ordered By: Maura Gaines on 06-10-2024 Calcium [Mass/Vol] 8.5 mg/dL 8.5-10.1 [facility] Serum or plasma creatinine m easurement (mass/volume)Ordered By: Maura Gaines on 06-10-2024 Creatinine [Mass/Vol] 0.66 mg/dL 0.55-1.02 [facility] Comment on above: The validity of the calculated GFR & GFRAA in patients over 70 years has not been determined. Clinical correlation is essential. Serum or plasma urea nitroge n measurement (mass/volume)Ordered By: Maura Gaines on 06-10-2024 Urea nitrogen [Mass/Vol] 11 mg/dL 11-07 [facility] Sodium levelOrdered By: Courtney Gaines on 06-10-2024 Sodium [Moles/Vol] 138 mmol/L 136-145 [facility] TSH QnOrdered By: Maura rebolledo on 06-10-2024 Thyroid Stimulating Hormone (TSH) 0.737 uIU/mL 0.358-3.740 [facility] Thyroid Stim Hormone (TSH)on 06-10-2024 TSH 0.737 uIU/mL Normal 0.358-3.740 [facility] Comment on above: Performed By: #### L 500.2500, L501.9520, L100.0100, L501.9985 #### [facility] [address] [place], [place], [id number] White blood cell (WBC) count Ordered By: Maura Gaines on 06-10-2024 WBC (Bld) [#/Vol] 6.1 10*3/uL 4.4-11.0 [facility] Acetone Serumon 06-09-2024 ACETONE SERUM Negative Normal NEG [facility] Comment on above: Performed By: #### L 500.2500, L501.9520, L100.0100, L501.9985 #### [facility] [address] [place], [address] Acetone [Mass/Vol]Ordered By : James Veras on 06-09-2024 Acetone Level Negative NEG [facility] Albumin to globulin ratioOrd ered By: James Veras on 06-09-2024 Albumin/Globulin [Mass ratio] 0.8 {ratio} Low 0.9-2.4 [facility] Basic Metabolic Profile (BMP )on 06-09-2024 BUN/CRE 15.2 RATIO Normal 10-20 [facility] Comment on above: Performed By: #### L 500.2500 #### [facility] [facility] [address] [place], [address] CA,Total 8.5 mg/dL Normal 8.5-10.1 [facility] Comment on above: Performed By: #### L 500.2500 #### [facility] [address] [place], [address] Chloride [Moles/Vol] 104 mmol/L Normal 98-107 [facility] Comment on above: Performed By: #### L 500.2500 #### [facility] [address] [place], [address] CO2 [Moles/Vol] 24.0 mmol/L Normal 21.0-32.0 [facility] Comment on above: Performed By: #### L 500.2500 #### [facility] [address] [place], [address] Creatinine [Mass/Vol] 0.92 mg/dL Normal 0.55-1.02 [facility] Comment on above: Result Comment: The validity of the calculated GFR GFRAA in patients over 70 years has not been determined. Clinical correlation is essential. Performed By: #### L 500.2500 #### [facility] [address] [place], [address] ECRCL 74.55 ml/min Normal [facility] Comment on above: Performed By: #### L 500.2500 #### [facility] [address] [place], [address] EST GFR - AA 82 mL/min Normal >60 [facility] Comment on above: Result Comment: Afri can Nigerien GFR Calc Performed By: #### L 500.2500 #### [facility] [address] [place], [address] GAP 7 Normal 5-15 [facility] Comment on above: Performed By: #### L 500.2500 #### [facility] [address] [place], [address] GFR/1.73 sq M.predicted among non-blacks MDRD (S/P/Bld) [Vol rate/Area] 68 mL/min/{1.73_m2} Normal >60 [facility] Comment on above: Result Comment: Non- GFR Calc Performed By: #### L 500.2500 #### [facility] [address] [place], [address] Glucose [Mass/Vol] 245 mg/dL High 74-106 [facility] Comment on above: Result Comment: Gluc ose result greater than or equal to 200 mg/dL suggests DIABETES MELLITUS per A.D.A. criteria. Performed By: #### L 500.2500 #### [facility] [address] [place], [address] Potassium [Moles/Vol] 3.2 mmol/L Low 3.5-5.1 [facility] Comment on above: Performed By: #### L 500.2500 #### [facility] [address] [place], [address] Sodium [Moles/Vol] 135 mmol/L Low 136-145 [facility] Comment on above: Performed By: #### L 500.2500 #### [facility] [address] [place], [address] Urea nitrogen [Mass/Vol] 14 mg/dL Normal 7-18 [facility] Comment on above: Performed By: #### L 500.2500 #### [facility] [address] [place], [address] BUN/CRE 17.1 RATIO Normal 10-20 [facility] Comment on above: Performed By: #### L 500.2500 #### [facility] [address] [place], [address] CA,Total 8.6 mg/dL Normal 8.5-10.1 [facility] Comment on above: Performed By: #### L 500.2500 #### [facility] [address] [place], [address] Chloride [Moles/Vol] 105 mmol/L Normal 98-107 [facility] Comment on above: Performed By: #### L 500.2500 #### [facility] [address] [place], [address] CO2 [Moles/Vol] 22.0 mmol/L Normal 21.0-32.0 [facility] Comment on above: Performed By: #### L 500.2500 #### [facility] [address] [place], [address] Creatinine [Mass/Vol] 0.82 mg/dL Normal 0.55-1.02 [facility] Comment on above: Result Comment: The validity of the calculated GFR GFRAA in patients over 70 years has not been determined. Clinical correlation is essential. Performed By: #### L 500.2500 #### [facility] [address] [place], [address] ECRCL 83.65 ml/min Normal [facility] Comment on above: Performed By: #### L 500.2500 #### [facility] [address] [place], [address] EST GFR - AA 95 mL/min Normal >60 [facility] Comment on above: Result Comment: Afri can Nigerien GFR Calc Performed By: #### L 500.2500 #### [facility] [address] [place], [address] GAP 9 Normal 5-15 [facility] Comment on above: Performed By: #### L 500.2500 #### [facility] [address] [place], [address] GFR/1.73 sq M.predicted among non-blacks MDRD (S/P/Bld) [Vol rate/Area] 78 mL/min/{1.73_m2} Normal >60 [facility] Comment on above: Result Comment: Non- GFR Calc Performed By: #### L 500.2500 #### [facility] [address] [place], [address] Glucose [Mass/Vol] 248 mg/dL High 74-106 [facility] Comment on above: Result Comment: Gluc ose result greater than or equal to 200 mg/dL suggests DIABETES MELLITUS per A.D.A. criteria. Performed By: #### L 500.2500 #### [facility] [address] [place], [address] Potassium [Moles/Vol] 3.1 mmol/L Low 3.5-5.1 [facility] Comment on above: Performed By: #### L 500.2500 #### [facility] [address] [place], [address] Sodium [Moles/Vol] 136 mmol/L Normal 136-145 [facility] Comment on above: Performed By: #### L 500.2500 #### [facility] [address] [place], [address] Urea nitrogen [Mass/Vol] 14 mg/dL Normal 7-18 [facility] Comment on above: Performed By: #### L 500.2500 #### [facility] [address] [place], [address] Bedside Glucoseon 06-09-2024 FINGERSTICK GLU 254 mg/dL High 74-106 [facility] Comment on above: Result Comment: KIRA GEMENT OF PATIENT CARE PER NURSING PROTOCOL Performed By: #### L 500.2500, L501.9520, L100.0100, L501.9985 #### [facility] [address] [place], [address] FINGERSTICK GLU 270 mg/dL High 74-106 [facility] Comment on above: Result Comment: KIRA GEMENT OF PATIENT CARE PER NURSING PROTOCOL Performed By: #### L 500.2500, L501.9520, L100.0100, L501.9985 #### [facility] [address] [place], [address] FINGERSTICK GLU 291 mg/dL High 74-106 [facility] Comment on above: Result Comment: KIRA GEMENT OF PATIENT CARE PER NURSING PROTOCOL Performed By: #### L 501.080 #### [facility] [address] [place], [address] Bilirubin Test strip Ql (U)O rdered By: James Veras on 06-09-2024 Bilirubin Ql (U) Negative Negative [facility] Bilirubin, totalOrdered By: James Veras on 06-09-2024 Bilirubin [Mass/Vol] 1.00 mg/dL 0.20-1.00 [facility] Comment on above: For patients on eltr ombopag therapy, use of Dimension [place] TBIL is not recommended. CBC W/Diff, Automatedon 05-24 MCHC (RBC) [Mass/Vol] 37.9 g/dL High 32-36 [facility] Comment on above: Result Comment: RESO LVE Performed By: #### L 500.2500, L501.9520, L100.0100, L501.9985 #### [facility] [address] [place], [address] Hemoglobin (Bld) [Mass/Vol] 16.2 g/dL High 12.0-15.0 [facility] Comment on above: Result Comment: RESO LVE Performed By: #### L 500.2500, L501.9520, L100.0100, L501.9985 #### [facility] [address] [place], [address] MCH (RBC) [Entitic mass] 30.9 pg Normal 27.0-32.0 [facility] Comment on above: Result Comment: RESO LVE Performed By: #### L 500.2500, L501.9520, L100.0100, L501.9985 #### [facility] [address] [place], [address] Absolute Lymph 2.07 X10 3/uL Normal 0.83-4.51 [facility] Comment on above: Performed By: #### L 500.2500, L501.9520, L100.0100, L501.9985 #### [facility] [address] [place], [address] Absolute Neut 5.9 X10 3/uL Normal 2.0-7.7 [facility] Comment on above: Performed By: #### L 500.2500, L501.9520, L100.0100, L501.9985 #### [facility] [address] [place], [address] Basophils/100 WBC (Bld) 0.4 % Normal 0-1 [facility] Comment on above: Performed By: #### L 500.2500, L501.9520, L100.0100, L501.9985 #### [facility] [address] [place], [address] Eosinophils/100 WBC (Bld) 0.1 % Normal 0-5 [facility] Comment on above: Performed By: #### L 500.2500, L501.9520, L100.0100, L501.9985 #### [facility] [address] [place], [address] Erythrocyte distribution width (RBC) [Ratio] 12.3 % Normal 11.6-14.6 [facility] Comment on above: Performed By: #### L 500.2500, L501.9520, L100.0100, L501.9985 #### [facility] [address] [place], [address] Hematocrit (Bld) [Volume fraction] 42.8 % Normal 37-47 [facility] Comment on above: Performed By: #### L 500.2500, L501.9520, L100.0100, L501.9985 #### [facility] [address] [place], [address] IG% 0.400 Normal 0.0-0.9 [facility] Comment on above: Result Comment: IG% - Immature Granulocytes (promyelocytes, myelocytes and metamyelocytes) > 1% indicates that a LEFT SHIFT is Present. Performed By: #### L 500.2500, L501.9520, L100.0100, L501.9985 #### [facility] [address] [place], [address] Lymphocytes/100 WBC (Bld) 24.8 % Normal 19-41 [facility] Comment on above: Performed By: #### L 500.2500, L501.9520, L100.0100, L501.9985 #### [facility] [address] [place], [address] MCV (RBC) [Entitic vol] 81.7 fL Normal 81-99 [facility] Comment on above: Performed By: #### L 500.2500, L501.9520, L100.0100, L501.9985 #### [facility] [address] [place], [address] Monocytes/100 WBC (Bld) 4.1 % Normal 0-10 [facility] Comment on above: Performed By: #### L 500.2500, L501.9520, L100.0100, L501.9985 #### [facility] [address] [place], [address] Neutrophils/100 WBC (Bld) 70.2 % High 47-70 [facility] Comment on above: Performed By: #### L 500.2500, L501.9520, L100.0100, L501.9985 #### [facility] [address] [place], [address] Nucleated RBC (Bld) [#/Vol] 0 10*3/uL Normal 0-5 [facility] Comment on above: Performed By: #### L 500.2500, L501.9520, L100.0100, L501.9985 #### [facility] [address] [place], [address] Platelet mean volume (Bld) [Entitic vol] 9.8 fL Normal 6.2-12.0 [facility] Comment on above: Performed By: #### L 500.2500, L501.9520, L100.0100, L501.9985 #### [facility] [address] [place], [address] Platelets (Bld) [#/Vol] 279 10*3/uL Normal 150-450 [facility] Comment on above: Performed By: #### L 500.2500, L501.9520, L100.0100, L501.9985 #### [facility] [address] [place], [address] RBC (Bld) [#/Vol] 5.24 10*6/uL Normal 4.2-5.4 [facility] Comment on above: Performed By: #### L 500.2500, L501.9520, L100.0100, L501.9985 #### [facility] [address] [place], [address] RDW SD 36.5 fl Normal 35.1-43.9 [facility] Comment on above: Performed By: #### L 500.2500, L501.9520, L100.0100, L501.9985 #### [facility] [address] [place], [address] WBC (Bld) [#/Vol] 8.3 10*3/uL Normal 4.4-11.0 [facility] Comment on above: Performed By: #### L 500.2500, L501.9520, L100.0100, L501.9985 #### [facility] [address] [place], [address] Chest PA and Lateralon 06-09 Chest PA and Lateral [facility] [address] [place] [address] Chest PA and Lateral MR#: [id number] Acct: [id number] Name: STEFFI SAEED Rep #: [id number] : 1975 F 49 From: Cristian Cavazos MD PCP: Care Physician,No Primary Status: [facility] ER Study: Chest PA and Lateral Date of Exam: 06/09/24 Exam# [id number] Ordering Dr: James Veras DO EXAM: XR Chest, 2 Views CLINICAL INDICATION: TECHNIQUE: Frontal and lateral views of the chest. COMPARISON: No relevant prior studies available. FINDINGS: LUNGS AND PLEURAL SPACES: Unremarkable. No consolidation. No pneumothorax. HEART: Unremarkable. No cardiomegaly. MEDIASTINUM: Unremarkable. Normal mediastinal contour. BONES/JOINTS: Unremarkable. No acute fracture. RAD/Chest PA and Lateral IMPRESSION: No acute cardiopulmonary process. Reading Location[facility] CC: Dr. James Veras DO; No Primary Care Physician [employer] Consultant: Signed Normal [facility] Comprehensive Metabolic Prof ilon 06-09-2024 Albumin [Mass/Vol] 3.7 g/dL Normal 3.2-5.0 [facility] Comment on above: Performed By: #### L 500.2500, L501.9520, L100.0100, L501.9985 #### [facility] [address] [place], [address] Albumin/Globulin [Mass ratio] 0.8 {ratio} Low 0.9-2.4 [facility] Comment on above: Performed By: #### L 500.2500, L501.9520, L100.0100, L501.9985 #### [facility] [address] [place], [address] ALK P 109 U/L Normal 45-117 [facility] Comment on above: Performed By: #### L 500.2500, L501.9520, L100.0100, L501.9985 #### [facility] [address] [place], [address] ALT [Catalytic activity/Vol] 17 U/L Normal 13-56 [facility] Comment on above: Performed By: #### L 500.2500, L501.9520, L100.0100, L501.9985 #### [facility] [address] [place], [address] AST [Catalytic activity/Vol] 22 U/L Normal 15-37 [facility] Comment on above: Performed By: #### L 500.2500, L501.9520, L100.0100, L501.9985 #### [facility] [address] [place], [address] Bilirubin [Mass/Vol] 1.00 mg/dL Normal 0.20-1.00 [facility] Comment on above: Result Comment: For patients on eltrombopag therapy, use of Dimension [place] TBIL is not recommended. Performed By: #### L 500.2500, L501.9520, L100.0100, L501.9985 #### [facility] [address] [place], [address] BUN/CRE 16.5 RATIO Normal 10-20 [facility] Comment on above: Performed By: #### L 500.2500, L501.9520, L100.0100, L501.9985 #### [facility] [address] [place], [address] CA,Total 9.6 mg/dL Normal 8.5-10.1 [facility] Comment on above: Performed By: #### L 500.2500, L501.9520, L100.0100, L501.9985 #### [facility] [address] [place], [address] Chloride [Moles/Vol] 96 mmol/L Low 98-107 [facility] Comment on above: Performed By: #### L 500.2500, L501.9520, L100.0100, L501.9985 #### [facility] [address] [place], [address] CO2 [Moles/Vol] 19.0 mmol/L Low 21.0-32.0 [facility] Comment on above: Performed By: #### L 500.2500, L501.9520, L100.0100, L501.9985 #### [facility] [address] [place], [address] Creatinine [Mass/Vol] 1.03 mg/dL High 0.55-1.02 [facility] Comment on above: Result Comment: The validity of the calculated GFR GFRAA in patients over 70 years has not been determined. Clinical correlation is essential. Performed By: #### L 500.2500, L501.9520, L100.0100, L501.9985 #### [facility] [address] [place], [address] ECRCL 67.53 ml/min Normal [facility] Comment on above: Performed By: #### L 500.2500, L501.9520, L100.0100, L501.9985 #### [facility] [address] [place], [address] EST GFR - AA 73 mL/min Normal >60 [facility] Comment on above: Result Comment: Afri can Nigerien GFR Calc Performed By: #### L 500.2500, L501.9520, L100.0100, L501.9985 #### [facility] [address] [place], [address] GAP 15 Normal 5-15 [facility] Comment on above: Performed By: #### L 500.2500, L501.9520, L100.0100, L501.9985 #### [facility] [address] [place], [address] GFR/1.73 sq M.predicted among non-blacks MDRD (S/P/Bld) [Vol rate/Area] 60 mL/min/{1.73_m2} Normal >60 [facility] Comment on above: Result Comment: Non- GFR Calc Performed By: #### L 500.2500, L501.9520, L100.0100, L501.9985 #### [facility] [address] [place], [address] Globulin (S) [Mass/Vol] 4.5 g/dL High 2.2-4.2 [facility] Comment on above: Performed By: #### L 500.2500, L501.9520, L100.0100, L501.9985 #### [facility] [address] [place], [address] Glucose [Mass/Vol] 339 mg/dL High 74-106 [facility] Comment on above: Result Comment: Gluc ose result greater than or equal to 200 mg/dL suggests DIABETES MELLITUS per A.D.A. criteria. Performed By: #### L 500.2500, L501.9520, L100.0100, L501.9985 #### [facility] [address] [place], [address] Potassium [Moles/Vol] 2.2 mmol/L Invalid Interpretation Code 3.5-5.1 [facility] Comment on above: Result Comment: Crit ical Result(s) Called at: 09:50:06 06/09/2024 by: Nayana Berumen to Uvaldo. Results read back by same. Performed By: #### L 500.2500, L501.9520, L100.0100, L501.9985 #### [facility] [address] [place], [address] Sodium [Moles/Vol] 130 mmol/L Low 136-145 [facility] Comment on above: Performed By: #### L 500.2500, L501.9520, L100.0100, L501.9985 #### [facility] [address] [place], [address] T PROT 8.2 g/dL Normal 6.4-8.2 [facility] Comment on above: Performed By: #### L 500.2500, L501.9520, L100.0100, L501.9985 #### [facility] [address] [place], [address] Urea nitrogen [Mass/Vol] 17 mg/dL Normal 7-18 [facility] Comment on above: Performed By: #### L 500.2500, L501.9520, L100.0100, L501.9985 #### [facility] [address] [place], [address] Emergency Department Summary on 06-09-2024 Emergency Department Summary [facility] Medical Records Department [address] [place] [address] Emergency Department Summary 06/09/24 MR#: [id number] Acct: [id number] Name: STEFFI SAEED Rep #: [id number] : 1975 49 From: James Veras DO PCP: Care Physician,No Primary Status:[facility] Location: [place] [address] James Veras DO on 06/09/24 at 1400 Patient is EKG was reviewed and showed sinus rhythm with a rate of 96 bpm QTc was noted be 42 no previous EKG to compare to 06/09/24 1400 Cosigner Signature (if applicable): cc: No Primary Care Physician * Signed HPI History of Present Illness Chief Complaint: Hyperglycemia Narrative Narrative: Patient is a 49-year-old female with no known significant past medical history who presented to the emergency department with a chief complaint of concern for elevated blood sugar. Patient states that she does not follow with a doctor on regular basis. Patient states that last Sunday she came down with flulike symptoms and has been not feeling well over the past several days. Patient noted that she felt like her glucose was high on Sunday but not check it. States that she has been not feeling well again today she checked it and noted that her sugar this morning was 280 and was concerned therefore they came here further evaluation management. Patient states that she has an upset stomach this morning but denies vomiting. PFSH PFSH Home Medications ???Medication ???Instructions ???Recorded ???Last Taken ???Type NK 06/09/24 Unknown History Allergy/AdvReac Type Severity Reaction Status Date / Time No Known Allergies Allergy Verified 06/09/24 08:38 Social History Smoking Status: Never smoker ROS ROS ED ROS Narrative Constitutional: Complains of chills denies fevers, headaches, lightness, dizziness Eyes: Denies change in vision double vision blurry vision Cardiovascular: Denies chest pain or palpitations Respiratory: Complains cough but denies sputum production denies shortness of breath Abdomen: Complains of nausea but denies any vomiting or diarrhea abdominal pain : Denies any urinary symptoms Neurological: Denies numbness, weakness, tingling Musculoskeletal: Denies back pain Skin: Denies any rashes or lesions EXAM Physical Exam Narrative Exam Narrative: General: Patient was lying in bed rest comfortably did not appear to be acute distress Head: Atraumatic, normocephalic Eyes: PERRL bilaterally, EOMI bilateral, no conjunctival injection noted Neck: Soft, supple, trach midline Cardiovascular: Regular rate and rhythm no murmurs gallops rubs noted Respiratory: Clear to auscultation bilaterally no rales rhonchi or wheezes noted Abdomen: Soft, nondistended, nontender to palpation Extremities: +5/5 strength noted in the bilateral upper and lower extremities, no pedal edema on exam, radial pulses +2/4 in the bilateral extremities Neurological: Patient following commands knew that she was at [facility] year is 2024 Skin: Warm, dry, intact no rashes or lesions noted Const Vital Signs: 06/09/24 08:39 06/09/24 10:38 06/09/24 12:00 Temperature 96.5 F L Temperature Source Temporal Pulse Rate 104 H 91 84 Respiratory Rate 16 18 17 Blood Pressure 143/101 H 117/80 133/76 H Blood Pressure Mean 115 92 95 Pulse Ox 98 98 Oxygen Delivery Method Room Air Room Air MDM MDM MDM Narrative Medical decision making narrative: Patient is a 49-year-old female who presented to the emergency department with concern for hypoglycemia. Plan of care blood glucose was obtained was noted be 291. On the differential diagnose includes but not limited to hyperglycemia, prediabetic, diabetic, UTI, pneumonia. Once workup is obtained reviewed she will be reevaluated. Patient be given IV fluids, Zofran, Bentyl. Patient CBC reviewed showed no evidence leukocytosis white blood count normal 8.3, hemoglobin was 16.2, platelet count normal at 279. Patient sodium was 130, potassium was noted to be low at 2.2, creatinine was 1.03. Patient glucose noted be 339 anion gap normal at 15. Patient AST and ALT were 22 and 17 respectively. Patient urinalysis reviewed and showed 25 leukocyte esterase negative nitrites 0-5 white blood cells with 3+ bacteria she does not have any urinary symptoms we will send this for culture. Patient's acetone level was negative. Patient chest x-ray reviewed by myself and by radiology showed no acute cardiopulmonary processes. Patient was given 40 mill equivalents of potassium supplementation orally followed by another 30 mill equivalents intravenously will add a another 20 on. Patient's case will be discussed with hospitalist for admission. Discussed case with hospitalist Dr. Gaines who accept patient for admis (more content not included)... Normal [facility] Epithelial cells.squamous LM Ql (Urine sed)Ordered By: James Veras on 06-09-2024 Epithelial cells.squamous LM.HPF (Urine sed) [#/Area] 0 /[HPF] 5-10 [facility] Glucose Ql (U)Ordered By: Sean Veras on 06-09-2024 Urine Glucose (UA) Normal mg/dl Normal [facility] H AND P Exam - [place] 06-09-2024 H&P Exam - Hospitalist [facility] Medical Records Department [address] [place] [address] H P Exam - Hospitalist 06/09/24 1404 MR#: [id number] Acct: [id number] Name: STEFFI SAEED Rep #: [id number] : 1975 49 From: Maura Gaines MD PCP: Care Physician,No Primary Status:ADM HOWARD Location: [place] [address] HPI - General General Date of Admission: 06/09/24 Date of Service: 06/09/24 Chief Complaint: elevated glucose, feeling gen unwell HPI Narrative STEFFI SAEED, is a 49-year-old female presented [facility] 04/08/2025 with concerns for elevated blood sugar. She does not follow with On regular basis. Last Sunday she came down with flulike symptoms and has not been feeling well. She was not feeling well again today and checked her blood sugar and noted it was 280s and was concerned so she came to the ED for evaluation management. She does have some stomach upset but no vomiting. In the ED [id number] glucose 291, sodium 130 with a potassium of 2.2, bicarb 19, anion gap 15 and creatinine 1.03 with no baseline labs in our system. Patient given a liter of IV fluid with 40 of oral potassium and 50 of IV potassium and hospitalist contacted for admission. Patient evaluated at bedside with family member present reports she has been feeling unwell for about 6 days with the flu, has had some aching and feeling generally unwell with cough and occasionally shortness of breath with the cough. Patient denies any current fevers, denies any abdominal pain, nausea or vomiting or diarrhea but does report she has had very poor p.o. intake during this time. Denies ever being diagnosed with diabetes or other medical problems and denies any known problems her potassium PFSH Home Medications ???Medication ???Instructions ???Recorded ???Last Taken ???Type NK 06/09/24 Unknown History Allergy/AdvReac Type Severity Reaction Status Date / Time No Known Allergies Allergy Verified 06/09/24 08:38 Social History Smoking Status: Never smoker ROS ROS Narrative General: Denies fever/chills HENT: Denies headache EYES: Denies changes in vision Resp: Has had some cough and shortness of breath with the cough Cardiac: Denies chest pain GI: Denies abdominal pain, denies changes in bowel, denies nausea/vomiting, poor p.o. intake : Denies changes in urination Extremity: Denies swelling MSK: Some weakness and generally feeling unwell Neuro: Denies any numbness/tingling Heme: Denies any bleeding or bruising Skin: Denies rashes Psychiatric: No complaints voiced Vital Signs Vital Signs Vital Signs: 06/09/24 08:39 06/09/24 10:38 06/09/24 12:00 Temperature 96.5 F L Temperature Source Temporal Pulse Rate 104 H 91 84 Respiratory Rate 16 18 17 Blood Pressure 143/101 H 117/80 133/76 H Blood Pressure Mean 115 92 95 Pulse Ox 98 98 Oxygen Delivery Method Room Air Room Air Weight Weight: 93.803 kg Body Mass Index (BMI) 39.0 Physical Exam Narrative General: Alert, oriented, no apparent distress HEENT: Atraumatic, normocephalic Eyes: Anicteric, normal conjunctiva, extraocular movements grossly intact Neck: Supple Respiratory: Clear to auscultation bilaterally, normal respiratory effort Cardiovascular: Regular rate and rhythm GI: Soft, nontender, nondistended Extremities: No edema Musculoskeletal: Moving all extremities Neuro: No overt focal neurological deficits Skin: No rashes appreciated Psych: Cooperative Results Lab / Micro Data 06/09/24 09:20 06/09/24 09:20 Labs: Laboratory Results - last 24 hr 06/09/24 08:45: POC Glucose 291 H 06/09/24 09:07: Urine Color Yellow, Urine Clarity Clear, Urine pH 6.5, Ur Specific [place] 1.010, U rine Protein 30 H, Urine Glucose (UA) Normal, Urine Ketones 50 H, Urine Occult Blood Negative, Urine Nitrite Negative, Urine Bilirubin Negative, Urine Urobilinogen Normal, Ur Leukocyte Esterase 25 H, Urine RBC 0 SEEN, Urine WBC 0-5 SEEN, Ur Squamous Epith Cells 0-5 SEEN, Ur Transition Epith Cell 0-5 SEEN, Urine Bacteria 3+, Hyaline Casts 0-5 SEEN, Urine Mucus 0 SEEN 06/09/24 09:20: WBC 8.3, RBC 5.24, Hgb 16.2 H, Hct 42.8, MCV 81.7, MCH 30.9, MCHC 37.9 H, RDW Std Deviation 36.5, RDW Coeff of Heath 12.3, Plt Count 279, MPV 9.8, Immature Gran % (Auto) 0.400, Neut % (Auto) 70.2 H, Lymph % (Auto) 24.8, Davidson % (Auto) 4.1, Eos % (Auto) 0.1, Baso % (Auto) 0.4, Absolute Neuts (auto) 5.9, Absolute Lymphs (auto) 2.07, Nucleated RBC % 0, Sodium 130 L, Potassium 2.2 L*, C hloride 96 L, Carbon Dioxide 19.0 L, Anion Gap 15, BUN 17, Creatinine 1.03 H, Estim Creat Clear Calc 67.53, Est GFR (MDRD) Af Amer 73, Est GFR (MDRD) Non-Af 60, BUN/Creatinine Ratio 16.5, Glucose 339 H , Calcium 9.6, Magnesium 2.2, Total Bilirubin 1.00, AST 22, ALT 17, Alkaline Phosphatase (more content not included)... Normal [facility] Hyaline casts LM.LPF (Urine sed) [#/Area]Ordered By: James Veras on 06-09-2024 Hyaline casts LM Ql (Urine sed) 0-5 SEEN /lpf 0-5 [facility] Ketones Test strip Ql (U)Ord ered By: James Veras on 06-09-2024 Ketones Ql (U) 50 mg/dl High Negative [facility] Laboratory - Chemistry and C hemistry - challengeOrdered By: James Veras on 06-09-2024 AST [Catalytic activity/Vol] 22 U/L 15-37 [facility] Lipaseon 06-09-2024 Lipase [Catalytic activity/Vol] 28 U/L Low 73-393 [facility] Comment on above: Performed By: #### L 500.2500, L501.9520, L100.0100, L501.9985 #### [facility] [address] [place], [place], [id number] Lipase measurementOrdered By : James Veras on 06-09-2024 Lipase [Catalytic activity/Vol] 28 U/L Low 73-393 [facility] MagnesiumOrdered By: James castro on 06-09-2024 Magnesium [Mass/Vol] 2.2 mg/dL Normal 1.6-2.6 [facility] Comment on above: Performed By: #### L 500.2500, L501.9520, L100.0100, L501.9985 #### [facility] [address] [place], [place], [id number] Microscopic analysis of urin e for red blood cells (RBC)Ordered By: James Veras on 06-09-2024 Urine RBC 0 SEEN /hpf 0-5 [facility] Mucus LM Ql (Urine sed)Order ed By: James Veras on 06-09-2024 Mucus Ql (Urine sed) 0 SEEN /hpf [facility] Nitrite Test strip Ql (U)Ord ered By: James Veras on 06-09-2024 Nitrite Ql (U) Negative Negative [facility] Protein Test strip Ql (U)Ord ered By: James Veras on 06-09-2024 Protein Ql (U) 30 mg/dl High Negative [facility] Serum globulin measurementOr dered By: James Veras on 06-09-2024 Globulin (S) [Mass/Vol] 4.5 g/dL High 2.2-4.2 [facility] Serum or plasma alanine douglas otransferase (ALT) measurementOrdered By: James Veras on 06-09-2024 ALT [Catalytic activity/Vol] 17 U/L 13-56 [facility] Serum or plasma albumin mazin urement (mass/volume)Ordered By: James Veras on 06-09-2024 Albumin [Mass/Vol] 3.7 g/dL 3.2-5.0 [facility] Serum or plasma alkaline sona sphatase measurementOrdered By: Jamesburt Veras on 06-09-2024 ALP [Catalytic activity/Vol] 109 U/L 45-117 [facility] Total proteinOrdered By: Esther Sidhuer on 06-09-2024 Protein [Mass/Vol] 8.2 g/dL 6.4-8.2 [facility] Transitional cells LM Ql (Ur ine sed)Ordered By: James Veras on 06-09-2024 Urine Transitional Epithelial Cells 0-5 SEEN /hpf 0-5 [facility] Urinalysis, Completeon 06-09 BACTERIA 3+ /hpf Normal None Seen [facility] Comment on above: Order Comment: CLEAN CATCH Performed By: #### L 500.2500, L501.9520, L100.0100, L501.9985 #### [facility] [address] [place], [address] CAST,HYALINE 0-5 SEEN Normal 0-5 [facility] Comment on above: Order Comment: CLEAN CATCH Performed By: #### L 500.2500, L501.9520, L100.0100, L501.9985 #### [facility] [address] [place], [address] EPI,SQUAMOUS 0-5 SEEN Normal 5-10 [facility] Comment on above: Order Comment: CLEAN CATCH Performed By: #### L 500.2500, L501.9520, L100.0100, L501.9985 #### [facility] [address] [place], [address] EPI,TRANSITION 0-5 SEEN Normal 0-5 [facility] Comment on above: Order Comment: CLEAN CATCH Performed By: #### L 500.2500, L501.9520, L100.0100, L501.9985 #### [facility] [address] [place], [address] Mucus Ql (Urine sed) 0 SEEN Normal [facility] Comment on above: Order Comment: CLEAN CATCH Performed By: #### L 500.2500, L501.9520, L100.0100, L501.9985 #### [facility] [address] [place], [address] RBC 0 SEEN Normal 0-5 [facility] Comment on above: Order Comment: CLEAN CATCH Performed By: #### L 500.2500, L501.9520, L100.0100, L501.9985 #### [facility] [address] [place], [address] WBC 0-5 SEEN Normal 0-5 [facility] Comment on above: Order Comment: CLEAN CATCH Performed By: #### L 500.2500, L501.9520, L100.0100, L501.9985 #### [facility] [address] [place], [address] Urine blood detectionOrdered By: James Veras on 06-09-2024 Urine Occult Blood Negative Negative [facility] Urine clarityOrdered By: Esther Veras on 06-09-2024 Clarity (U) Clear Clear [facility] Urine color determinationOrd ered By: James Veras on 06-09-2024 Color (U) Yellow Yellow [facility] Urine cultureOrdered By: Esther Veras on 06-09-2024 Bacteria identified Cx Nom (U) Positive Abnormal [facility] Urine leukocyte esterase det ection by dipstickOrdered By: James Veras on 06-09-2024 Leukocyte esterase Test strip Ql (U) 25 /ul High Negative [facility] Urine pHOrdered By: James rosenberg on 06-09-2024 pH (U) 6.5 [pH] 5.0 - 8.0 [facility] Urine sediment bacteria coun t by microscopy (number/high power field)Ordered By: James Veras on 06-09-2024 Bacteria LM.HPF (Urine sed) [#/Area] 3 /[HPF] None Seen [facility] Urine specific gravity measu rementOrdered By: James Veras on 06-09-2024 Specific gravity (U) [Rel density] 1.010 1.002-1.030 [facility] Urobilinogen Ql (U)Ordered B y: James Veras on 06-09-2024 Urine Urobilinogen Normal mg/dl Normal [facility] White blood cell countOrdere d By: James Veras on 06-09-2024 Urine WBC 0-5 SEEN /hpf 0-5 [facility] Vital Signs Date Time Vital Sign Value Performing Clinician Faci lity 07-11-2024 21:10-0400 Body temperature 98 [degF] Dr. James Veras DO Work Phone: [facility] 07-11-2024 21:10-0400 Diastolic blood pressure 81 mm[Hg] Dr. James Veras DO Work Phone: [phone] [place] [address] 07-11-2024 21:10-0400 Heart rate 63 /min Dr. James Veras DO Work Phone: [phone] [place] [address] 07-11-2024 21:10-0400 Respiratory rate 16 /min Dr. James Veras DO Work Phone: [facility] 07-11-2024 21:10-0400 SaO2% (BldA) [Mass fraction] 96 % Dr. James Veras DO Work Phone: [facility] 07-11-2024 21:10-0400 Systolic blood pressure 109 mm[Hg] Dr. James Veras DO Work Phone: [facility] 07-11-2024 16:25-0400 Body height 154.[address] James Veras DO Work Phone: [facility] 07-11-2024 16:25-0400 Body mass index (BMI) [Ratio] 36.6 kg/m2 Dr. James Veras DO Work Phone: [facility] 07-11-2024 16:25-0400 Body weight 87.[address] James Veras DO Work Phone: [facility] 06-10-2024 13:37-0500 Body temperature 97.6 [degF] Dr. James Veras DO Work Phone: [facility] 06-10-2024 13:37-0500 Diastolic blood pressure 70 mm[Hg] Dr. James Veras DO Work Phone: [facility] 06-10-2024 13:37-0500 Heart rate 87 /min Dr. James Veras DO Work Phone: [facility] 06-10-2024 13:37-0500 Respiratory rate 18 /min Dr. James Veras DO Work Phone: [facility] 06-10-2024 13:37-0500 SaO2% (BldA) [Mass fraction] 94 % Dr. James Veras DO Work Phone: [facility] 06-10-2024 13:37-0500 Systolic blood pressure 110 mm[Hg] Dr. James Veras DO Work Phone: [facility] 06-09-2024 15:14-0500 Body mass index (BMI) [Ratio] 38.1 kg/m2 Dr. James Veras DO Work Phone: [facility] 06-09-2024 15:14-0500 Body weight 91.[address] James Veras DO Work Phone: [facility] Encounters Encounter Date Encounter Type Care Provider Facility Start: 07-17-2024 End: 07-17-2024 Transcribe Orders Siria Lee MD Work Phone: [facility] Comment on above: Encounter for screen ing colonoscopy (Primary Dx) Start: 07-11-2024 End: 07-11-2024 Emergency department patient visit Tony Patel Facility:[facility] Start: 06-10-2024 Non-patient / Non-visit Dr. Attila Matute MD -[facility] Work Phone: Start: 06-09-2024 End: 06-10-2024 ambulatory Maura Gaines Facility:[facility] Start: 06-09-2024 End: 06-10-2024 Evaluation and management of inpatient Dr. Attila Matute MD -[facility] Unit Work Phone: Procedures Date Procedure Procedure Detail Performing Clinician Start: 06-09-[address] James Veras DO Work Phone: Start: 06-09-2024 X-ray of chest, PA a nd lateral views Dr. James Veras DO Work Phone: Plan of Treatment Date Care Activity Detail Author Start: 07-11-2024 [facility] Start: 06-10-2024 Patient discharge [facility] Start: 06-09-2024 Following clinical p athway protocol [facility] Start: 06-09-2024 Assessment of risk o f venous thromboembolism [facility] Start: 06-09-2024 Care regimes management [facility] Start: 06-09-2024 Incentive spirometry [facility] Start: 06-09-20[address]ion of cathete r into peripheral vein [facility] Start: 06-09-2024 Notification of physician [facility] Start: 06-09-2024 Providing care accor ding to standard [facility] Start: 06-09-2024 Provision of activit y privileges [facility] Start: 06-09-2024 Respiratory secretio n precautions [facility] Start: 06-09-2024 End: 06-09-2024 [facility] Start: 06-09-2024 Admission procedure [facility] Start: 06-09-2024 [facility] Patient Education ED Hypokalemia [facility] Work Phone: Patient referral [facility] Work Phone: Payers Date Payer Category Payer Self-pay 2024 Unknown [id number] Unknown [id number] Unknown [id number] Unknown [id number] Unknown [id number] Social History Date Type Detail Facility Tobacco smoking status NHIS Tobacco smoking consumption unknown [facility] Work Phone: Start: 1975 Sex assigned at Not on file [facility] Gender identity Not on file [facility] Start: 07-11-2024 Tobacco smoking status NHIS Never smoked tobacco (finding) [facility] Start: 07-11-2024 Sex Female (finding) [facility] Start: 1975 Sex Assigned At Female [facility] Goals Date Patient Goal Desired Activity /State Functional Status Date Assessment Result Facility 06-10-2024 Functional status Ambulates;Up ad yong [facility] Work Phone: Mental Status Date Assessment Result Facility 07-11-2024 Cognitive function Level Of Cons ciousness Awake;Alert;Appropriate;Follow s Commands [facility] Work Phone: 06-10-2024 Cognitive function Awake;Alert;Follows Co mmands [facility] Work Phone: Discharge summary 07-11-2024 Note Date & Type Note Facility 07-11-2024 Discharge summary [facility] Discharge summary 07-11-2024 Note Date & Type Note Facility 07-11-2024 Discharge summary Note Date/Time July 11, 2024 8:59pm [facility] Medical Records Department [address] [place] [address] Emergency Department Summary 07/11/24 MR#: [id number] Acct: [id number] Name: STEFFI SAEED Rep #:[id number] : 1975 49 From: Tony Patel MD PCP: Care Physician,No Primary Status :REG ER Location: ED HPI History of Present Illness Chief Complaint: Weakness Detail of Chief Complaint: I do not feel right since Sunday Informant: patient and spouse/S.O. Onset/Context/Timing Onset: Days Context: Sudden Onset Timing: Continuous Quality: Feels different, does not feel right Location: No specific location, generalized Current Severity: Unable to quantitate Maximum Severity: Unable to quantitate Worsened by: Nothing Relieved by: Nothing Associated Symptoms Associated Symptoms: Legs are wobbly when she walks Narrative Narrative: Patient is a 49-year-old woman. She has history of type 2 diabetes. She was prescribed potassium in the past for hypokalemia. She denies fever, chills night sweats. Denies headache, visual, ocular auditory symptoms. She denies problems with speech or swallowing. She denies rhinorrhea, congestion, postnasal drainage sore throat. She denies chest pain. Denies cough or shortness of breath. She denies difficulty breathing. She denies abdominal pain, nausea, vomiting has chronic diarrhea. Patient denies dysuria, frequency, urgency or hematuria. Patient denies skin lesions. Patient denies paresthesia, anesthesia or motor weakness. Patient denies orthostatic symptoms. Patient denies vertiginous symptoms. Patient's sugars have been running between 1 20-1 50 which is about her baseline. I was walking out the room informing that last time she felt this way her potassium was low. Prior similar symptoms: Yes Recent Illness/Hospitalization: [facility] Medical History Diabetes Home Medications ?Medication ?Instructions ?Recorded ?Last Taken ?Type glipizide 5 mg tablet 5 mg PO BID 1 month #60 tabs 06/10/24 Unknown Rx metformin 500 mg tablet 500 mg PO BID 1 month #60 ta bs 06/10/24 Unknown Rx potassium chloride 20 mEq 40 meq (2 x 20 mEq) PO BIDCM 3 06/10/24 Unknown Rx tablet,extended release(part/cryst) days #12 tabs potassium chloride 20 mEq oral 20 meq PO BID #50 ea Unknown Rx packet Allergy/AdvReac Type Severity Reaction Status Date / Time No Known Allergies Allergy Verified 07/11/24 16:26 Social History (Updated 07/11/24 @ 19:[address] Tony Patel MD) household members: spouse Smoking Status: Never smoker ROS ROS ED Constitutional Constitutional ED: Denies chills, fever(s), subjective, sweats or weight loss Eyes Eyes: Denies blurry vision or change in vision ENT ENT ED: Denies ear pain, rhinorrhea or sore throat Cardiovascular Cardiovascular: Denies chest pain, orthopnea, palpitations, paroxysmal nocturnaldyspnea or racing heartbeat Respiratory/Chest Respiratory/Chest: Denies cough, dyspnea on exertion, orthopnea or paroxysmal nocturnal dyspnea Gastrointestinal Gastrointestinal: Reports diarrhea and other Details: Diarrhea is chronic. She has never had a colonoscopy. She did have stool tests. She does not know the results. ; Denies abdominal pain, constipation, melena, nausea or vomiting Genitourinary Genitourinary ED: Denies dysuria, hematuria or urinary frequency Musculoskeletal Musculoskeletal: Denies arthralgias, back pain or myalgias Integumentary Denies abscess, Abrasions or rash Neurologic Neurologic: Reports weakness; Denies headache(s) or paresthesias Psychiatric Psychiatric: Denies anxiety or depression Hematologic/Lymphatic Hematologic/Lymphatic: Reports systems reviewed and no addt'l complaints, exceptas documented EXAM Physical Exam Const Vital Signs: 07/11/24 16:25 07/11/24 16:46 07/11/24 17:13 Temperature 96.1 F L Temperature Source Temporal Pulse Rate 98 Pulse Rate [Lying] 91 Pulse Rate [Sitting (for 1 minute prior to obtaining)] 92 Pulse Rate [Standing (for 1 minute prior to obtaining)] 101 H Respiratory Rate 14 Respiratory Effort Normal Respiratory Pattern Normal Blood Pressure 119/83 H Blood Pressure [Lying] 113/74 Blood Pressure [Sitting (for 1 minute prior to obtaining)] 113/86 H Blood Pressure [Standing (for 1 minute prior to obtaining)] 103/82 H Blood Pressure Mean 95 Blood Pressure Mean [Lying] 87 Blood Pressure Mean [Sitting (for 1 minute prior to obtaining)] 95 Blood Pressure Mean [Standing (for 1 minute prior to obtaining)] 89 Pulse Ox 98 Oxygen Delivery Method Room Air 07/11/24 18:25 07/11/24 20:00 Temperature Temperature Source Pulse Rate 89 89 Pulse Rate [Lying] Pulse Rate [Sitting (for 1 minute prior to obtaining)] Pulse Rate [Standing (for 1 minute prior to obtaining)] Respiratory Rate 16 16 Respiratory Effort Respiratory Pattern Blood Pressure 111/74 112/82 H Blood Pressure [Lying] Blood Pressure [Sitting (for 1 minute prior to obtaining)] Blood Pressure [Standing (for 1 minute prior to obtaining)] Blood Pressure Mean 86 92 Blood Pressure Mean [Lying] Blood Pressure Mean [Sitting (for 1 minute prior to obtaining)] Blood Pressure Mean [Standing (for 1 minute prior to obtaining)] Pulse Ox 99 97 Oxygen Delivery Method Room Air Room Air Vital signs noted. Orthostatic vital signs negative. Positive well nourished and well developed Constitutional Narrative: BMI is 36.6. General Appearance ED: well developed and NAD; Negative for pallor HEENT Reports moist mucous membranes HEENT Narrative: Head is atraumatic normocephalic. Ears are normal. Nares are patent. Posterior pharynx is normal. Uvula is midline. No deviation tongue protrusion. Eyes PERRL and EOMs intact bilaterally General Eye ED: Negative for pale conjunctiva or scleral icterus Neck no lymphadenopathy, supple and no JVD Chest Wall inspection of chest normal and palpation of chest normal Resp normal respiratory effort and clear to auscultation bilaterally Cardio regular rate, regular rhythm, S1 normal heart sound, S2 normal heart sound and no murmurs GI normal to inspection, nondistended, normoactive bowel sounds, non-tender, non-distended and no masses; Negative for hepatosplenomegaly Back/Spine no CVA tenderness Extremity normal to inspection General Extremety ED: Negative for edema or tenderness General Extremity: Negative for edema Neuro oriented x3, CN's II-XII intact bilaterally and no sensory deficits noted Sensorium / Orientation: alert Motor Exam: strength 5/5 throughout Psych mental status grossly normal Skin no rashes or lesions noted, no wounds and skin turgor normal General Skin Exam: elasticity normal; Negative for jaundice or pallor MDM MDM MDM Narrative Medical decision making narrative: The patient complained of wobbly legs orthostatics were performed and normal. CBC to assess H&H since she appears pale but her conjunctive is pink. UA to assess specific gravity and evidence of infection. Since he is diabetic Roc panel was obtained assess glucose CO2 anion gap. With her having chronic diarrhea also to assess for hypokalemia and in light of the fact that she has had hypokalemia in the past. Lab Data Attestation: I reviewed the patient's lab results. Lab results narrative: White count is slightly elevated with normal basic metabolic panel is remarkablefor a sodium of 130, potassium of 2.8 and chloride of 91. CO2 is slightly decreased at 20.7 with an anion gap of 18. As needed GFR is 68. Urinalysis reveals bacteria without pyuria. Labs: Laboratory Results - last 24 hr 07/11/24 07/11/24 07/11/24 16:54 17:05 17:20 WBC 13.1 H RBC 5.47 H Hgb 16.8 H Hct 45.3 MCV 82.8 MCH 30.7 MCHC 37.1 H RDW Std Deviation 38.0 RDW Coeff of Heath 12.6 Plt Count 366 MPV 9.7 Immature Gran % (Auto) 0.300 Neut % (Auto) 67.9 Lymph % (Auto) 23.5 Davidson % (Auto) 7.5 Eos % (Auto) 0.6 Baso % (Auto) 0.2 Absolute Neuts (auto) 8.9 H Absolute Lymphs (auto) 3.08 Nucleated RBC % 0 Sodium 130 L Potassium 2.8 L Chloride 91 L Carbon Dioxide 20.7 L Anion Gap 18 H BUN 21 H Creatinine 1.00 Estim Creat Clear Calc 67.08 Est GFR (MDRD) Non-Af 68 BUN/Creatinine Ratio 20.7 H Glucose 140 H Calcium 10.0 Total Bilirubin 0.51 AST 20 ALT 11 Alkaline Phosphatase 85 Total Protein 8.1 Albumin 4.8 Globulin 3.4 Albumin/Globulin Ratio 1.4 Urine Color Yellow Urine Clarity Clear Urine pH 6.0 Ur Specific [place] 1.015 Urine Protein 30 H Urine Glucose (UA) Normal Urine Ketones 5 H Urine Occult Blood Negative Urine Nitrite Negative Urine Bilirubin Negative Urine Urobilinogen Normal Ur Leukocyte Esterase Negative Urine RBC 0 SEEN Urine WBC 0 SEEN Ur Squamous Epith Cells 0-5 SEEN Urine Bacteria 1+ Urine Mucus 1+ POC Glucose 162 H Treatment and Re-Evaluation :: Since patient is hypokalemic 40 mEq of potassium was ordered and repeat dose in 1 hour. Suspect this is due to her chronic diarrhea. Will suggest to follow-upwith Dr. Delaney for outpatient workup of her diarrhea. Comments:: Patient was informed she needs follow-up with electronic device monitor for colonoscopy or sigmoidoscopy. She states she is having this worked up. She wasoffered an acute appointment with Dr. Delaney. She declined. She states she would talk to her doctor to determine what best. Patient understands that her low potassium is due to her diarrhea. Will place on potassium supplement. Discharge Plan Triage Chief Complaint: Weakness ED Provider: Tony Patel Dx/Rx/DC Orders Clinical Impression: Acute hypokalemia, Chronic diarrhea, Hypothermia, Type 2 diabetes mellitus, BMI36.0-36.9,adult Instructions: ED Hypokalemia Prescriptions: New potassium chloride 20 mEq packet 20 meq PO BID Qty: 50 0RF No Action potassium chloride 20 mEq Tablet,Er Particles/Crystals 40 meq PO BIDCM 3 Days Qty: 12 0RF glipizide 5 mg tablet 5 mg PO BID 30 Days Qty: 60 2RF Rx Instructions: Hold if glucose less than 130 mg/dl metformin 500 mg tablet 500 mg PO BID 30 Days Qty: 60 1RF Rx Instructions: Start from 06/12/2024 Primary Care Provider: Care Physician,No Primary Referrals: Care Physician,No Primary [Primary Care Provider] - Activity Restrictions/Additional Instructions: With your history of chronic diarrhea this is probably the cause of your low potassium. You will need to have your potassium level checked in a week by yourdoctor. Strongly recommend/encourage you follow-up with GI for endoscopy whether it be a colonoscopy or sigmoidoscopy. Print Language: Bolivian Disposition Disposition: Home, Self Care What to do if you have Problems For any increased pain, shortness of breath, bleeding, nausea or vomiting, chestpain, or any unexpected problems, contact your Primary Care Provider. Call [facility] ([phone]) or report to the closest Emergency Room. Call 911 if necessary. 07/11/242058 <Electronically signed by Tony Patel MD> Cosigner Signature (if applicable): CC: No Primary Care Physician ~ Signed [facility] Work Phone: Discharge summary note 06-10-2024 Note Date & Type Note Facility 06-10-2024 Note [facility] Medical Records Department [address] [place] [address] Discharge Summary 06/10/24 1200 MR#: [id number] Acct: [id number] Name: STEFFI SAEED Rep #: [id number] : 1975 49 From: Attila Matute MD PCP: Care Physician,No Primary Status:ADM HOWARD Location: [place] [address] Providers Date of Admission: 06/09/24 Date of Discharge: 06/10/24 Primary Care Physician: No Primary Care Phys Reason For Visit: HYPOKALEMIA Diagnosis Discharge Diagnosis (1) Acute hypokalemia: Status: Acute Code(s): E87.6 - Hypokalemia Plan 49-year-old female was admitted with high blood sugar at home. Patient does not have a PCP to follow-up with # Hypokalemia -Potassium 2.2 in the ED with magnesium within normal limits -EKG with a QTc of 482 and 96 bpm, normal sinus rhythm -Potassium was replaced. Prescription for potassium given. Serum magnesium normal. # new onset diabetes mellitus: Patient knew that she has hyperglycemia for the last 4 to 5 years but really she was avoiding it. Most likely type 2 diabetes mellitus. She does not have primary care. Advised to establish with. A1c 7.6%. Glucose is controlled, 176 in BMP. Prescription given for metformin and glipizide. Advised Gluc[place] 3 times daily AC metformin. # Acute dehydration: Hydration was completed. -Patient with elevated hemoglobin, creatinine of 1.03 and electrolyte abnormalities, given this in addition to her flulike symptoms concerned that there is a component of dehydration -IV fluids -Supportive care # Flulike symptoms -Patient endorses 6 days of the flu, supportive care. She is recovering. Advised to maintain droplet precautions for 2 more days #DVT ppx: Lovenox subcu Discharge medication reconciliation done. Discharge follow-up instructions completed. Discharge process discussed with the patient and all questions were answered to patient's satisfaction. Follow with PCP in 1 to 2 weeks Total time spent, exact 35 minutes on discharge meds reconciliation, examination, coordination of care with nurses and ancillary staff, review of imaging and blood test and discussion with the patient on follow-up instructions. Medications at Discharge Home Medications glipizide 5 mg tablet 5 mg PO BID 1 month #60 tabs 06/10/24 metformin 500 mg tablet 500 mg PO BID 1 month #60 tabs 06/10/24 potassium chloride 20 mEq tablet,extended release(part/cryst) 40 meq (2 x 20 mEq) PO BIDCM 3 days #12 tabs 06/10/24 Physical Exam Narrative Seen and examined. Patient has mild cough from flu about 6 days to 1 week ago. She is recovering well. No fever. Glucoses controlled. Physical exam General: Alert, Oriented x3, Cooperative HEENT: Atraumatic, PERRLA, EOMI, Normocephalic Oral: Oral mucosa moist. No Gingival or Mucosal Lesions/ Ulcerations Neck: Supple, No JVD, Negative Carotid Bruits Chest wall/Lungs: Air entry diminished in bilateral lung bases. No crepitation/rhonchi Cardiovascular: Regular rate, Regular Rhythm, Normal S1, Normal S2, No M/G/R Abdomen: Bowel Sounds Present, Soft, Non Tender, Non-Distended : No dysuria. No renal angle tenderness. No suprapubic tenderness. Extremities: No edema, Capillary Refill Less than 3 Seconds Skin: No rashes, No breakdown Musculoskeletal: No Tenderness to Palpation of Joints or Extremities Neurological: Cranial nerves II-XII grossly intact, DTR 2+/4. No acute focal neurological deficit. Psych/Mental Status: Normal Affect, Appropriate. Weight / BMI Weight Weight: 201 lb 11.567 oz Body Mass Index (BMI) 38.1 ABG / Lab / Microbiology Data 06/10/24 06:39 06/10/24 06:39 Laboratory: Laboratory Results - last 24 hr 06/09/24 17:06: POC Glucose 270 H 06/09/24 17:43: Sodium 136, Potassium 3.1 L, Chloride 105, Carbon Dioxide 22.0, Anion Gap 9, BUN 14, Creatinine 0.82, Estim Creat Clear Calc 83.65, Est GFR (MDRD) Af Amer 95, Est GFR (MDRD) Non-Af 78, BUN/Creatinine Ratio 17.1, Glucose 248 H, Calcium 8.6 06/09/24 21:47: POC Glucose 254 H 06/09/24 22:09: Sodium 135 L, Potassium 3.2 L, Chloride 104, Carbon Dioxide 24.0, Anion Gap 7, BUN 14, Creatinine 0.92, Estim Creat Clear Calc 74.55, Est GFR (MDRD) Af Amer 82, Est GFR (MDRD) Non-Af 68, BUN/Creatinine Ratio 15.2, Glucose 245 H, Calcium 8.5 06/10/24 06:22: POC Glucose 190 H 06/10/24 06:39: WBC 6.1, RBC 4.59, Hgb 13.8, Hct 38.8, MCV 84.5, MCH 30.1, MCHC 35.6 D, RDW Std Deviation 38.6, RDW Coeff of Heath 12.7, Plt Count 249, MPV 9.7, Immature Gran % (Auto) 0.300, Neut % (Auto) 56.3, Lymph % (Auto) 37.1, Davidson % (Auto) 5.2, Eos % (Auto) 0.8, Baso % (Auto) 0.3, Absolute Neuts (auto) 3.5, Absolute Lymphs (auto) 2.28, Nucleated RBC % 0, Sodium 138, Potassium 3.1 L, C hloride 109 H, Carbon Dioxide 22.0, Anion Gap 7, BUN 11, Creatinine 0.66, Estim Creat Clear Calc 103.92, Est GFR (MDRD) Af Amer 121, Est GFR (MDRD) Non-Af 100, (more content not included)... [facility] Evaluation note 06-09-2024 Note Date & Type Note Facility 06-09-2024 Evaluation note Diagnosis Onset Date Resolution Acute hypokalemia acute Februar y 2024 2:04pm Influenza A resolved May 2:04pm [facility] Work Phone: Evaluation note Note Date & Type Note Facility Evaluation note Diagnosis Encounter for screening colonoscopy- Primary documented in this encounter [facility] Discharge instructions Note Date & Type Note Facility Hospital Discharge instructions Additional Instructions With your history of chronic diarrhea this is probably the cause of your low potassium. You will need to have your potassium level checked in a week by your doctor. Strongly recommend/encourage you follow-up with GI for endoscopy whether it be a colonoscopy or sigmoidoscopy. [facility] Work Phone: Reason for referral (narrative) Note Date & Type Note Facility Reason for referral (narrative) No reason for referral information available [facility] Work Phone: Summary Purpose Family History No Family History Records Found Advance Directives Advance Directive Response Recorded Date/ Time Living Will No June 09 4:15pm Do you have a Healthcare Power of Hospice Office Coordinator? No June 09, 2024 4:15pm Living Will No July 11, 2024 4:46pm Do you have a Healthcare Power of Hospice Office Coordinator? No July 11, 2024 4:46pm Chief Complaint and Reason for Visit Chief Complaint Admit Date HYPOKALEMIA June 09, 2024 2:04pm HYPOKALEMIA June 10, 2024 12:00pm NAUSEA July 11, 2024 4:2 5pm Reason for Visit Admit Date Acute hypokalemia June 09, 2024 2:04pm Influenza A June 09, 2024 2:04pm Additional Source Comments INFORMATION SOURCE (unrecogn ized section and content) DATE CREATED AUTHOR 07/20/2024 [facility] Care Teams (unrecognized sec tion and content) Team Status: Active Member Role Status Dates No Primary Care Physician Primary Care Provider Active Team Status: Inactive Member Role Status Dates Dr. James Veras DO Emergency Provider Active Start: June 09, 2024 End: June 10, 2024 No Primary Care Physician Primary Care Provider Active Start: June 09, 2024 End: June 10, 2024 Dr. Maura Gaines MD Admit Provider Active Star t: June 09, 2024 End: June 10, 2024 Dr. Maura Gaines MD Other Provider Active Star t: June 09, 2024 End: June 10, 2024 Dr. Attila Matute MD Attending Provider Active Start: June 09, 2024 End: June 10, 2024 Team Status: Active Member Role Status Dates Dr. James Veras DO Emergency Provider Active Start: June 10, 2024 No Primary Care Physician Primary Care Provider Active Start: June 10, 2024 Dr. Maura Gaines MD Admit Provider Active Star t: June 10, 2024 Dr. Maura Gaines MD Other Provider Active Star t: June 10, 2024 Dr. Attila Matute MD Attending Provider Active Start: June 10, 2024 Dr. Attila Matute MD Other Provider Active Sta rt: June 10, 2024 Team Status: Inactive Member Role Status Dates No Primary Care Physician Primary Care Provider Active Start: July 11, 2024 End: July 11, 2024 Dr. Tony Patel MD Emergency Provider Active Sta rt: July 11, 2024 End: July 11, 2024 FOR RECORDS PERTAINING TO PATIENTS WHO ARE OR HAVE BEEN ENROLLED IN A CHEMICAL DEPENDENCY/SUBSTANCEABUSE PROGRAM, SOME INFORMATION MAY BE OMITTED. This clinical summary was aggregated from multiple sources. Caution should be exercised in using it in the provision of clinical care. This summary normalizes information from multiple sources, and as a consequence, information in this document may materially change the coding, format and clinical context of patient data. In addition, data may be omitted in some cases. CLINICAL DECISIONS SHOULD BE BASED ON THE PRIMARY CLINICAL RECORDS. [facility] [employer] [facility]. provides no warranty or guarantee of the accuracy or completeness of information in this document.
[2025-04-19 11:00] LABS: Hematocrit 40.6 % (37-47); Hemoglobin 15.2 g/dL (12.0-15.0); Mean Corp Hgb Conc 37.4 g/dL (32-36); Mean Corpuscular Volume 83.4 fL (81-99)
[2025-04-19 11:01] LABS: Magnesium 2.1 mg/dL (1.5-2.2)
[2025-04-19 11:04] LABS: Anion Gap 15 (7-18); BUN 16 mg/dL (4-19); BUN/Creat Ratio 20.8 RATIO (10-20); Calcium,Total 9.3 mg/dL (7.6-11.0); Carbon Dioxide 22.9 mmol/L (20.0-29.0); Chloride 93 mmol/L (96-106); Estimated Creatinine Clearance 89.25 ml/min (50-250); Glucose 248 mg/dL (70-99); Potassium 2.7 mmol/L (3.5-5.1)
[2025-04-19] MEDS: Potassium Chloride Oral Tablet 20 MEQ 40 MEQ PO (11:28)
[2025-04-19] MEDS: Potassium Chloride 10mEq/100mL 10 MEQ/100 ML IV.SOLN. 100 MEQ IV BOLUS (11:41)
[2025-04-19 12:01] VITALS: BP 98/71; PULSE 78; RESP 13; O2SAT 97
[2025-04-19 12:49] VITALS: BP 120/66; PULSE 93; RESP 15; TEMP 37.1; O2SAT 97
== END 2025-04-19 13:19 | disposition home or self-care (01) ==
PROVIDERS: Emergency Provider Emergency Medicine; Visit Provider Emergency Medicine
DX: R53.1 Weakness (principal); E11.9 Type 2 diabetes mellitus without complications; E87.6 Hypokalemia; Z79.84 Long term (current) use of oral hypoglycemic drugs; R94.31 Abnormal electrocardiogram [ECG] [EKG]
CPT/HCPCS: 80048; 83735; 85025; 93005; 96360; 99284; A4216